=== PATIENT | male | born 1940 | race Caucasian/White ===

== ENCOUNTER 2020-02-20 07:58 | Outpatient (RCR) | payer MEDICARE, BC, SELFPAY ==
--- NOTE | 2020-02-20 08:36 | PTOPEVAL ---
Thank you for referring Cristiano Torres to [facility].? The patient is scheduled to be seen for therapy? __3__x/week for 12 visits. Please review, sign, date and return this plan of care MARIPOSA. I agree with and certify that the following plan of care is medically necessary. Referring Physician Date Admitting Provider: Attending Provider: Omar Chambers MD Referring Provider: *PT Outpatient Evaluation Start: 02/20/20 08:09 Freq: Status: Active Protocol: Document 02/20/20 08:09 VITO (Rec: 02/20/20 08:36 VITO [id number]) Therapy Assessment Status Assessment Status Assessment Status Evaluation Evaluation Information Problem Diagnosis left shoulder pain Onset 09/28/19 Subjective Information Pt. reports that he recalls no Query Text:As Reported By Patient/ specific injury to the left Family shoulder. He states that he was doing a large amount of yard work in September and notice a gradual onset of left shoulder pain. He reports that pain is worst when laying on his right side. He states that reaching overhead is very painful and notes that he is becoming weak. He states that his goal is to improve his shoulder strength and mobility and decrease his pain . Prior Level of Function Activity Level (Last 3 Months) Occupation retired Hand Dominance Left Activity of Daily Living Ability Independent Indoor/Home Mobility Independent Community Mobility Independent Stairs Ability Independent Functional Cognition (Planning, Shopping Independent , Taking Medications) Cooking Yes Cleaning Yes Laundry Yes Shopping Yes Driving Yes Pain Assessment Pain Scale Pain Scale Used Numeric (1 - 10) Self Report Pain Assessment Left Shoulder(s) Reported Pain Level 2 Pain Description Aching Pain Frequency Continuous Lowest Pain Intensity 2 Greatest Pain Intensity 6 Pain Aggravating Factors Exercise/Activity,Lifting, Prolonged Position Pain Score Pain Score 2: Self Report Interventions Used Interventions Used By Clinicians Activity or ADL's,Electrical
== END 2020-03-16 09:45 | disposition home or self-care (01) ==
LOC: CHSPT 07:58
PROVIDERS: PCP Internal Medicine; Visit Provider Internal Medicine
DX: M25.512 Pain in left shoulder (principal)
CPT/HCPCS: 97014; 97110; 97140; 97161; G0283

== ENCOUNTER 2021-10-24 15:17 | Outpatient (CLI) | payer MEDICARE, BC, SELFPAY ==
[2021-10-24 16:24] LABS: SARS-CoV-2 RNA PCR Positive (Negative)
== END 2021-10-24 15:18 | disposition home or self-care (01) ==
LOC: CHSLAB 15:21
PROVIDERS: PCP Internal Medicine; Visit Provider Nurse Practitioner Family
DX: U07.1 COVID-19 (principal); J06.9 Acute upper respiratory infection, unspecified; R05.9 Cough, unspecified
CPT/HCPCS: C9803; U0003; U0005

== ENCOUNTER 2022-08-15 11:58 | Outpatient (CLI) | payer MEDICARE, SELFPAY ==
--- NOTE | ~2022-08-15 | CT_ITS ---
EXAMINATION: CT abdomen pelvis w con DATE: 08/15/2022 13:08 INDICATION: Acute left lower quadrant pain TECHNIQUE: Computed tomography (CT) of the abdomen and pelvis was performed with 100 cc Omnipaque 350 intravenous contrast. The dose-length product was 661.49 mGy-cm. Automated exposure control and iterative reconstruction technique were employed. COMPARISON: None. FINDINGS: Lung bases are unremarkable. Heart size normal. No significant pleural or pericardial effus ion. There are calcified granulomas of the liver. There are small subcentimeter hypodensities of the spleen, likely benign cyst. Gallbladder is present. The pancreas, adrenal glands are unremarkable. Th ere is a 4 mm stone in the upper pole of the right kidney. There are bilateral renal cysts, largest i n the left kidney measuring 5.1 cm. There is acute sigmoid diverticulitis without evidence for perforation or abscess. No significant vas cular abnormality. There is a retroaortic left renal vein. Gallbladder is present. No free air. No ab scess. Advanced multilevel spondylosis with grade 1 spondylolisthesis at L5-S1 secondary to spondylol ysis. IMPRESSION: 1. Acute sigmoid diverticulitis with moderate colonic wall thickening and surrounding phlegmonous keenan nge. 2: Nonobstructing right nephrolithiasis. Reviewed, dictated and finalized at location B. IMPRESSION: 1. Acute sigmoid diverticulitis with moderate colonic wall thickening and surro unding phlegmonous change. 2: Nonobstructing right nephrolithiasis.
[2022-08-15 12:13] LABS: Basophils Absolute Auto 0.03 K/mm3 (0.00-0.10); Basophils Percent Auto 0.3 % (0.0-1.0); Eosinophils Absolute Auto 0.07 K/mm3 (0.02-0.50); Eosinophils Percent Auto 0.8 % (1.0-6.0); Hemoglobin 13.8 g/dL (12.4-15.3); Immature Granulocyte Absolute 0.03 K/mm3 (0.00-0.00); Immature Granulocyte Percent A 0.3 % (0.0-0.0); Lymphocytes Absolute Auto 1.06 K/mm3 (1.10-4.50); Mean Corpuscular HGB Conc 33.7 g/dL (32.0-36.0); Mean Corpuscular Hemoglobin 31.4 pg (27.0-31.0); Mean Corpuscular Volume 93.2 fL (78.0-102.0); Monocytes Absolute Auto 0.81 K/mm3 (0.10-0.90); Monocytes Percent Auto 9.1 % (2.0-11.0); Neutrophils Absolute Auto 6.9 K/mm3 (1.7-7.2); Neutrophils Percent Auto 77.5 % (50.0-70.0); Platelet Count Result 143 K/mm3 (150-420); Red Cell Distribution Width 13.2 % (11.6-14.4); White Blood Count 8.9 K/mm3 (4.8-10.8)
[2022-08-15 12:15] LABS: Appearance Urine Clear (Clear); Bilirubin Urine Negative (Negative); Blood Urine Negative (Negative); Color Urine Yellow (Yellow); Glucose Urine UA Negative (Negative); Ketones Urine Negative (Negative); Leukocyte Esterase Ur Negative (Negative); Nitrate Urine Negative (Negative); Protein Urine Negative (Negative); Urobilinogen Urine 0.2 mg/dL (0.2-1.0); pH Urine 5.5 (5.0-8.0)
[2022-08-15 12:17] LABS: Add Urine Microscopic? NO
[2022-08-15 12:34] LABS: Alanine Aminotransferase 21 U/L (16-63); Albumin Level 3.7 g/dL (3.4-5.0); Alkaline Phosphatase 147 U/L (46-116); Anion Gap 8 mmol/L (8-16); Aspartate Amino Transferase 19 U/L (15-37); Bilirubin,Total 1.6 mg/dL (0.00-1.00); Blood Urea Nitrogen 16 mg/dL (7-18); Calcium 8.9 mg/dL (8.5-10.1); Carbon Dioxide 29 mmol/L (21-32); Chloride 102 mmol/L (98-108); Estimated Glomerular Filt Rate > 60; Glucose 87 mg/dL (70-99); Osmolality Calculated 288 mOsm/kg (285-295); Potassium 4.3 mmol/L (3.5-5.1); Sodium 139 mmol/L (136-145); Total Protein 7.1 g/dL (6.4-8.2)
== END 2022-08-15 11:59 | disposition home or self-care (01) ==
LOC: CHSLAB 12:01
PROVIDERS: PCP Internal Medicine; Visit Provider Internal Medicine
DX: K57.92 Diverticulitis of intestine, part unspecified, without perforation or abscess without bleeding (principal)
CPT/HCPCS: 36415; 74177; 80053; 81003; 85025; Q9967

== ENCOUNTER 2023-02-05 10:48 | Outpatient (CLI) | payer MEDICARE, SELFPAY ==
--- NOTE | ~2023-02-05 | CT_ITS ---
EXAMINATION: CTA chest PE protocol DATE: 02/05/2023 14:57 INDICATION: Shortness of breath TECHNIQUE: Computed tomography angiography (CTA) of the chest was performed with 100 mL Omnipaque-350 intravenous contrast timed to evaluate the pulmonary arteries. Coronal maximum intensity projection 3D-reconstructions were created by the technologist. The dose-length product (DLP) was 493.02 mGy-cm. Automated exposure control and iterative reconstruction technique were employed. COMPARISON: None. FINDINGS: The pulmonary arteries are well-opacified. No pulmonary embolism is identified. There are s mall pleural effusions. Cardiomegaly is noted. There are no pathologically enlarged thoracic lymph no rajiv. Changes of coronary artery bypass grafting are noted. There is mild dependent atelectasis. No pn eumothorax is identified. Punctate calcifications in an otherwise normal liver likely represent heale d granulomatous disease. There are bridging osteophytes at multiple levels in the spine, consistent w ith diffuse idiopathic skeletal hyperostosis (DISH). IMPRESSION: 1. No pulmonary embolism identified. 2. Small pleural effusions with mild dependent atelectasis. Reviewed, dictated and finalized at location L. TER CLERK TRACTOR PARTS
--- NOTE | ~2023-02-05 | US_ITS ---
EXAMINATION: US venous doppler [facility] DATE: 02/05/2023 14:46 INDICATION: Bilateral lower limb swelling TECHNIQUE: Hartley scale images without and with compression and Doppler images of the bilateral lower e xtremity veins were obtained. COMPARISON: None FINDINGS: The right common femoral vein, profunda femoral vein, femoral vein, popliteal vein, peroneal trunk, p osterior tibial veins, and greater saphenous vein are patent. The left common femoral vein, profunda femoral vein, femoral vein, popliteal vein, peroneal trunk, po sterior tibial veins, and greater saphenous vein are patent. IMPRESSION: 1. Patent bilateral lower extremity veins. No evidence of deep venous thrombosis. Reviewed, dictated and finalized at location L. MAKER HELPER IMPRESSION: 1. Patent bilateral lower extremity veins. No evidence of deep venous thrombosi s.
--- NOTE | ~2023-02-05 | XR_ITS ---
Clinical Indication: Dyspnea PA and lateral views of the chest: Comparison: 07/24/2016 Findings: There is minimal blunting of the costophrenic angles. Lungs are otherwise clear. Cardiomed iastinal silhouette is stable, status post CABG. Bones and soft tissues are unremarkable. Impression: Minimal blunting of the costophrenic angles. Correlate for minimal pleural effusions. Status post CABG. Reviewed, dictated and finalized at location M. L HANGING SUPERVISOR Impression: Minimal blunting of the costophrenic angles. Correlate for minimal pleural effu sions. Status post CABG.
[2023-02-05 11:12] LABS: Basophils Absolute Auto 0.04 K/mm3 (0.00-0.10); Basophils Percent Auto 0.8 % (0.0-1.0); Eosinophils Absolute Auto 0.13 K/mm3 (0.02-0.50); Eosinophils Percent Auto 2.7 % (1.0-6.0); Hematocrit 40.9 % (37.0-46.0); Hemoglobin 13.4 g/dL (12.4-15.3); Immature Granulocyte Absolute 0.05 K/mm3 (0.00-0.00); Immature Granulocyte Percent A 1.1 % (0.0-0.0); Lymphocytes Absolute Auto 0.79 K/mm3 (1.10-4.50); Lymphocytes Percent Auto 16.6 % (18.0-42.0); Mean Corpuscular HGB Conc 32.8 g/dL (32.0-36.0); Mean Corpuscular Hemoglobin 30.6 pg (27.0-31.0); Mean Corpuscular Volume 93.4 fL (78.0-102.0); Mean Platelet Volume 9.7 fl (8.7-11.0); Monocytes Absolute Auto 0.53 K/mm3 (0.10-0.90); Monocytes Percent Auto 11.1 % (2.0-11.0); Neutrophils Absolute Auto 3.2 K/mm3 (1.7-7.2); Neutrophils Percent Auto 67.7 % (50.0-70.0); Platelet Count Result 150 K/mm3 (150-420); Red Blood Count 4.38 M/mm3 (4.70-6.10); Red Cell Distribution Width 13.3 % (11.6-14.4); White Blood Count 4.8 K/mm3 (4.8-10.8)
--- NOTE | 2023-02-05 11:12 | ECG_ITS ---
Measurements Intervals [place] Rate: 66 P: RI: 0 QRS: 91 QRSD: 101 T: -6 QT: 394 QTc: 416 Interpretive Statements ATRIAL FIBRILLATION RIGHT AXIS DEVIATION CANNOT RULE OUT SEPTAL INFARCT, AGE INDETERMINATE CONSIDER HIGH LATERAL INFARCT, AGE INDETERMINATE ST-T WAVE ABNORMALITY IN INFERIOR LEADS- CONSIDER ISCHEMIA ABNORMAL ECG NO PREVIOUS ECG AVAILABLE FOR COMPARISON Electronically Signed On 02-05-2023 11:38:54 CUTTER FINISHER by Marcelino Leung D.O.
[2023-02-05 11:31] LABS: D Dimer 3.87 mg/L (0.19-0.50)
[2023-02-05 11:36] LABS: Appearance Urine Clear (Clear); Bilirubin Urine Negative (Negative); Blood Urine Negative (Negative); Color Urine Light Yellow (Yellow); Glucose Urine UA Negative (Negative); Ketones Urine Negative (Negative); Leukocyte Esterase Ur Negative (Negative); Nitrate Urine Negative (Negative); Protein Urine Negative (Negative); Urobilinogen Urine 0.2 mg/dL (0.2-1.0)
[2023-02-05 11:37] LABS: Alanine Aminotransferase 18 U/L (16-63); Albumin Level 3.9 g/dL (3.4-5.0); Alkaline Phosphatase 177 U/L (46-116); Anion Gap 7 mmol/L (8-16); Aspartate Amino Transferase 24 U/L (15-37); Bilirubin,Total 1.3 mg/dL (0.00-1.00); Blood Urea Nitrogen 18 mg/dL (7-18); Calcium 9.6 mg/dL (8.5-10.1); Carbon Dioxide 29 mmol/L (21-32); Chloride 104 mmol/L (98-108); Estimated Glomerular Filt Rate > 60; Free T3 2.57 pg/mL (2.18-3.98); Free T4 Free Thyroxine 1.06 ng/dL (0.76-1.46); Glucose 90 mg/dL (70-99); NT Pro B Type Natriuretic Pept 1438 pg/mL (0-450); Osmolality Calculated 291 mOsm/kg (285-295); Potassium 5.2 mmol/L (3.5-5.1); Sodium 140 mmol/L (136-145); Thyroid Stimulating Hormone 3.67 uIU/mL (0.36-3.74); Total Protein 7.3 g/dL (6.4-8.2)
[2023-02-05 11:39] LABS: Add Urine Microscopic? NO
[2023-02-05 15:16] LABS: Creatine Kinase 72 U/L (39-308); Troponin I 34.9 ng/L (0.00-60.4)
== END 2023-02-05 10:49 | disposition home or self-care (01) ==
PROVIDERS: PCP Internal Medicine; Visit Provider Internal Medicine
DX: I48.91 Unspecified atrial fibrillation (principal); R06.00 Dyspnea, unspecified; R60.9 Edema, unspecified; R79.1 Abnormal coagulation profile; I50.9 Heart failure, unspecified; J90 Pleural effusion, not elsewhere classified; J98.11 Atelectasis; Z95.1 Presence of aortocoronary bypass graft; R94.31 Abnormal electrocardiogram [ECG] [EKG]
CPT/HCPCS: 36415; 71046; 71275; 80053; 81003; 82550; 82553; 83880; 84439; 84443; 84481; 84484; 85025; 85380; 93005; 93970; Q9967

== ENCOUNTER 2023-02-09 08:02 | Outpatient (CLI) | payer MEDICARE, SELFPAY ==
[2023-02-09 09:17] LABS: Anion Gap 6 mmol/L (8-16); Blood Urea Nitrogen 25 mg/dL (7-18); Calcium 9.4 mg/dL (8.5-10.1); Carbon Dioxide 35 mmol/L (21-32); Chloride 103 mmol/L (98-108); Estimated Glomerular Filt Rate 57; Glucose 93 mg/dL (70-99); Osmolality Calculated 302 mOsm/kg (285-295); Potassium 4.3 mmol/L (3.5-5.1); Sodium 144 mmol/L (136-145)
[2023-02-09 09:40] LABS: NT Pro B Type Natriuretic Pept 824 pg/mL (0-450)
== END 2023-02-09 08:03 | disposition home or self-care (01) ==
LOC: CHSLAB 08:04
PROVIDERS: PCP Internal Medicine; Visit Provider Internal Medicine
DX: I50.9 Heart failure, unspecified (principal)
CPT/HCPCS: 36415; 80048; 83880

== ENCOUNTER 2023-02-24 15:25 | Outpatient (CLI) | payer MEDICARE, SELFPAY ==
[2023-02-24 15:52] LABS: Anion Gap 3 mmol/L (8-16); Blood Urea Nitrogen 34 mg/dL (7-18); Calcium 9.4 mg/dL (8.5-10.1); Carbon Dioxide 36 mmol/L (21-32); Chloride 102 mmol/L (98-108); Estimated Glomerular Filt Rate 55; Glucose 92 mg/dL (70-99); Osmolality Calculated 299 mOsm/kg (285-295); Potassium 4.2 mmol/L (3.5-5.1); Sodium 141 mmol/L (136-145)
== END 2023-02-24 15:26 | disposition home or self-care (01) ==
LOC: CHSLAB 15:27
PROVIDERS: Internal Medicine Cardiovascular Disease; PCP Internal Medicine; Visit Provider Nurse Practitioner Adult Health
DX: I50.42 Chronic combined systolic (congestive) and diastolic (congestive) heart failure (principal)
CPT/HCPCS: 36415; 80048

== ENCOUNTER 2023-03-09 12:55 | Outpatient (CLI) | payer MEDICARE, SELFPAY ==
--- NOTE | 2023-03-09 13:03 | ECHO_ITS ---
Patient Info Name: Cristiano Torres Age: 82 years : 1940 Gender: Male Ht: 71 in Wt: 180 lbs BSA: 2.03 m2 HR: 65 bpm BP: 142 / 85 mmHg Technical Quality: Good Exam Date: 03/09/2023 2:07 PM Exam Location: Echo Lab Patient Status: Outpatient Admit Date: 03/09/2023 Staff Ordering Physician: Omar Chambers MD Assembler Tubing: Franck Cardona RDCS Attending Provider: Omar Chambers MD Referring Physician: Reyes ELLIS; Exam Type: CA echo doppler color flow Study Info Indications - CHF Complete two-dimensional, color flow and Doppler transthoracic echocardiogram is performed. Summary 1. Complete two-dimensional, color flow and Doppler transthoracic echocardiogram is performed. 2. Left ventricular chamber dimension is normal. 3. Left ventricular systolic function is normal, estimated at 55-60%. 4. There is mild concentric increased left ventricular wall thickness. 5. The left ventricular diastolic function is abnormal. 6. E/e' 18 is elevated. 7. Left atrial chamber dimension is mildly enlarged. 8. There is mild aortic valve sclerosis. 9. There is trace aortic valve regurgitation. 10. There is mild to moderate mitral valve regurgitation. 11. There is mild tricuspid valve regurgitation. 12. No pulmonary hypertension, estimated pulmonary arterial systolic pressure is 27 mmHg. 13. There is mild pulmonic regurgitation. Left Ventricle E/e' 18 is elevated. Left ventricular chamber dimension is normal. Left ventricular systolic function is normal, estimated at 55-60%. There is mild concentric increased left ventricular wall thickness. The left ventricular diastolic function is abnormal. Right Ventricle Right ventricular systolic function is normal and with normal TAPSE 2.6 cm. Right ventricular chamber dimension is normal. Left Atria Left atrial chamber dimension is mildly enlarged. Right Atria Right atrial chamber dimension is normal. Aortic Valve The aortic valve is trileaflet. There is mild aortic valve sclerosis. There is no aortic valve stenosis. There is trace aortic valve regurgitation. Pulmonic Valve There is mild pulmonic regurgitation. Mitral Valve There is no mitral valve stenosis. There is mild to moderate mitral valve regurgitation. Tricuspid Valve There is mild tricuspid valve regurgitation. No pulmonary hypertension, estimated pulmonary arterial systolic pressure is 27 mmHg. Pericardium/Pleural There is no pericardial effusion. Inferior Vena Cava Normal inferior vena cava with >50% collapse upon inspiration consistent with normal right atrial pressure, 5 mmHg. Aorta The aortic root size at the sinus of Valsalva is normal. Left Ventricular Outflow Tract Name Value Normal LVOT 2D LVOT Diameter 2.0 cm LVOT Doppler LVOT Peak Velocity 67 cm/s LVOT Peak Gradient 2 mmHg LVOT Mean Gradient 1 mmHg LVOT VTI 17 cm LVOT VTI/AV VTI Ratio 0.8 LVOT Stroke Volume 55 ml Pulmonic Valve Name Value
== END 2023-03-09 12:56 | disposition home or self-care (01) ==
PROVIDERS: Absent Provider Internal Medicine Cardiovascular Disease; PCP Internal Medicine; Visit Provider Internal Medicine
DX: I50.9 Heart failure, unspecified (principal); I08.3 Combined rheumatic disorders of mitral, aortic and tricuspid valves
CPT/HCPCS: 93306

== ENCOUNTER 2023-10-09 11:18 | Outpatient (CLI) | payer MEDICARE, SELFPAY ==
[2023-10-09 11:36] LABS: Hematocrit 40.5 % (37.0-46.0); Hemoglobin 13.9 g/dL (12.4-15.3); Mean Corpuscular HGB Conc 34.3 g/dL (32-36); Mean Corpuscular Hemoglobin 32.2 pg (27.0-31.0); Mean Corpuscular Volume 93.8 fL (78.0-102.0); Mean Platelet Volume 9.5 fl (8.7-11.0); Platelet Count Result 171 K/mm3 (150-420); Red Blood Count 4.32 M/mm3 (4.70-6.10); Red Cell Distribution Width 12.4 % (11.6-14.4); White Blood Count 7.4 K/mm3 (4.8-10.8)
[2023-10-09 11:37] LABS: Appearance Urine Clear (Clear); Bilirubin Urine Negative (Negative); Blood Urine Negative (Negative); Color Urine Light Yellow (Yellow); Glucose Urine UA Negative (Negative); Ketones Urine Negative (Negative); Leukocyte Esterase Ur Negative (Negative); Nitrate Urine Negative (Negative); Protein Urine Negative (Negative); Specific Grav Ur <= 1.005 (1.010-1.020)
[2023-10-09 13:18] LABS: Alanine Aminotransferase 21 U/L (16-63); Albumin Level 4.1 g/dL (3.4-5.0); Alkaline Phosphatase 125 U/L (46-116); Anion Gap 8 mmol/L (4-12); Aspartate Amino Transferase 22 U/L (15-37); Bilirubin,Total 0.8 mg/dL (0.00-1.00); Blood Urea Nitrogen 25 mg/dL (7-18); Calcium 9.5 mg/dL (8.5-10.1); Carbon Dioxide 31 mmol/L (21-32); Chloride 101 mmol/L (98-108); Cholesterol 132 mg/dL (0-200); Estimated Glomerular Filt Rate > 60; Ferritin 90 ng/mL (26-388); Free T3 2.07 pg/mL (2.18-3.98); Free T4 Free Thyroxine 0.87 ng/dL (0.76-1.46); Glucose 88 mg/dL (70-99); HDL Direct 52 mg/dL (40-60); Iron 97 ug/dL (65-175); LDL Cholesterol Calculated 60 mg/dL (<130); NT Pro B Type Natriuretic Pept 1100 pg/mL (0-450); Osmolality Calculated 293 mOsm/kg (285-295); Potassium 4.9 mmol/L (3.5-5.1); Sodium 140 mmol/L (136-145); Thyroid Stimulating Hormone 2.38 uIU/mL (0.36-3.74); Total Protein 7.2 g/dL (6.4-8.2); Triglycerides 98 mg/dL (0-150); Vitamin B12 > 2000 pg/mL (193-986)
[2023-10-09 15:41] LABS: Add Urine Microscopic? NO
== END 2023-10-09 11:19 | disposition home or self-care (01) ==
LOC: CHSLAB 11:21
PROVIDERS: PCP Internal Medicine; Visit Provider Internal Medicine
DX: I10 Essential (primary) hypertension (principal); G62.9 Polyneuropathy, unspecified; D64.9 Anemia, unspecified; I50.9 Heart failure, unspecified
CPT/HCPCS: 36415; 80053; 80061; 81003; 82607; 82728; 83540; 83880; 84439; 84443; 84481; 85027

== ENCOUNTER 2023-11-05 16:03 | Outpatient (CLI) | payer MEDICARE, SELFPAY ==
--- NOTE | 2023-11-05 16:09 | ECHO_ITS ---
Patient Info Name: Cristiano Torres Age: 83 years : 1940 Gender: Male Ht: 72 in Wt: 184 lbs BSA: 2.07 m2 HR: 69 bpm BP: 132 / 80 mmHg Technical Quality: Fair Exam Date: 11/05/2023 3:59 PM Exam Location: [facility] Patient Status: Outpatient Admit Date: 11/05/2023 Staff Ordering Physician: Omar Chambers MD Sales Closer: Evan Felton RDCS Attending Provider: Omar Chambers MD Referring Physician: Reyes ELLIS; Exam Type: CA echo doppler color flow Study Info Indications - CHF Complete two-dimensional, color flow and Doppler transthoracic echocardiogram is performed. Summary 1. Complete two-dimensional, color flow and Doppler transthoracic echocardiogram is performed. 2. Left ventricular chamber dimension is normal. 3. There is mild concentric increased left ventricular wall thickness. 4. Left ventricular systolic function is moderately globally reduced, estimated at 40-45%. 5. The left ventricular diastolic function is abnormal. 6. E/e' 12 is mildly elevated. 7. Left atrial chamber dimension is mildly enlarged. 8. Right atrial chamber dimension is mildly enlarged. 9. There is mild aortic valve sclerosis. 10. There is mild aortic valve regurgitation. 11. There is moderate mitral valve regurgitation. 12. There is moderate tricuspid valve regurgitation. 13. Mild pulmonary hypertension, estimated pulmonary arterial systolic pressure is 45 mmHg. 14. There is moderate to severe pulmonic regurgitation. 15. The prox ascending aorta size is borderline dilated at 4.0 cm. Left Ventricle E/e' 12 is mildly elevated. Left ventricular systolic function is moderately globally reduced, estimated at 40-45%. Left ventricular chamber dimension is normal. There is mild concentric increased left ventricular wall thickness. The left ventricular diastolic function is abnormal. Right Ventricle Right ventricular chamber dimension is normal. Right ventricular systolic function is normal. Left Atria Left atrial chamber dimension is mildly enlarged. Right Atria Right atrial chamber dimension is mildly enlarged. Aortic Valve The aortic valve is trileaflet. There is mild aortic valve sclerosis. There is no aortic valve stenosis. There is mild aortic valve regurgitation. Pulmonic Valve There is moderate to severe pulmonic regurgitation. Mitral Valve There is no mitral valve stenosis. There is moderate mitral valve regurgitation. Tricuspid Valve There is moderate tricuspid valve regurgitation. Mild pulmonary hypertension, estimated pulmonary arterial systolic pressure is 45 mmHg. Pericardium/Pleural There is no pericardial effusion. Inferior Vena Cava Normal inferior vena cava with >50% collapse upon inspiration consistent with normal right atrial pressure, 5 mmHg. Aorta The prox ascending aorta size is borderline dilated at 4.0 cm. The aortic root size at the sinus of Valsalva is normal. Left Ventricular Outflow Tract Name Value Normal LVOT 2D LVOT Diameter 2.3 cm LVOT Doppler LVOT Peak Velocity 60 cm/s LVOT Peak Gradient 1 mmHg LVOT Mean Gradient 1 mmHg LVOT VTI 13 cm
== END 2023-11-05 16:04 | disposition home or self-care (01) ==
PROVIDERS: PCP Internal Medicine; Visit Provider Internal Medicine
DX: I50.9 Heart failure, unspecified (principal); I08.3 Combined rheumatic disorders of mitral, aortic and tricuspid valves; I37.1 Nonrheumatic pulmonary valve insufficiency; I27.20 Pulmonary hypertension, unspecified; R93.1 Abnormal findings on diagnostic imaging of heart and coronary circulation
CPT/HCPCS: 93306

== ENCOUNTER 2024-06-30 10:32 | Outpatient (CLI) | payer MEDICARE, SELFPAY ==
--- NOTE | ~2024-06-30 | XR_ITS ---
EXAMINATION: XR chest 2V DATE: 06/30/2024 11:11 INDICATION: Shortness of breath TECHNIQUE: frontal and lateral views of the chest were obtained. COMPARISON: Chest radiograph and CT dated 02/15/2023 FINDINGS: The lungs are clear with no focal airspace opacities, pulmonary edema, pleural effusion or pneumothor ax. The cardiomediastinal silhouette is normal. Median sternotomy wires and mediastinal surgical clip s are seen, likely from prior coronary artery bypass grafting. Mild thoracic spondylosis with chronic mild anterior wedging of a midthoracic vertebral body. IMPRESSION: 1. No acute cardiopulmonary disease. Reviewed, dictated and finalized at location A.
--- NOTE | ~2024-06-30 | CT_ITS ---
EXAMINATION: CT brain wo con DATE: 06/30/2024 11:12 INDICATION: 3 days of severe frontal headache TECHNIQUE: Computed tomography (CT) of the head was performed without intravenous contrast. Sagittal and coronal reconstructions were performed. The mA was adjusted according to patient size. Iterative reconstruction technique was employed. The dose-length product was 605.33 mGy-cm. COMPARISON: None FINDINGS: No acute intracranial hemorrhage, acute infarction or abnormal extra axial fluid collection. Old lacu salome infarcts at the bilateral basal ganglia. There is mild scattered white matter hypoattenuation con sistent with chronic small vessel ischemic disease. Symmetric prominence of the sulci consistent with mild age-appropriate diffuse cerebral volume loss. Ventricles are normal and symmetric. No mass/mass effect. The orbits, paranasal sinuses and mastoid air cells are normal. IMPRESSION: 1. 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 No acute intracranial process. 2. Age-related changes including mild diffuse volume loss and mild scattered white matter hypoattenua tion consistent with chronic small vessel ischemic disease. Reviewed, dictated and finalized at location A. IMPRESSION: 1. 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 No acute intracranial p rocess. 2. Age-related changes including mild diffuse volume loss and mild scattered wh ite matter hypoattenuation consistent with chronic small vessel ischemic diseas e.
[2024-06-30 10:54] LABS: Basophils Absolute Auto 0.04 K/mm3 (0.00-0.10); Basophils Percent Auto 0.8 % (0.0-1.0); Eosinophils Absolute Auto 0.15 K/mm3 (0.02-0.50); Eosinophils Percent Auto 2.9 % (1.0-6.0); Hemoglobin 13.3 g/dL (12.4-15.3); Immature Granulocyte Absolute 0.02 K/mm3 (0.00-0.00); Immature Granulocyte Percent A 0.4 % (0.0-0.0); Lymphocytes Absolute Auto 1.06 K/mm3 (1.10-4.50); Lymphocytes Percent Auto 20.2 % (18.0-42.0); Mean Corpuscular HGB Conc 32.4 g/dL (32-36); Mean Corpuscular Hemoglobin 30.5 pg (27.0-31.0); Mean Platelet Volume 9.8 fl (8.7-11.0); Monocytes Absolute Auto 0.57 K/mm3 (0.10-0.90); Monocytes Percent Auto 10.9 % (2.0-11.0); Neutrophils Percent Auto 64.8 % (50.0-70.0); Platelet Count Result 169 K/mm3 (150-420); Red Blood Count 4.36 M/mm3 (4.70-6.10); Red Cell Distribution Width 12.3 % (11.6-14.4); White Blood Count 5.2 K/mm3 (4.8-10.8)
--- OUTSIDE RECORDS SUMMARY | 2024-06-30 11:25 | XMS_ITS | Referral Summary ---
Author Organization [facility] Address [address] [place] [id number] Care Team Providers Care Correctional Nurse Name Role Phone Omar Chambers MD Primary Care Provider + [phone] Allergies No known active allergies Medications aspirin 325 mg EC tablet take 1 tablet by oral route every day 0 0 7 Active furosemide (LASIX) 20 mg tablet Take 2 tablets (40 mg total) by mouth daily Active metoprolol XL (TOPROL-XL) 25 mg extended release tablet Take 1 tablet (25 mg total) by mouth daily 30 tablet 11 3 Active Additional Information Patient taking differently: 50 mgoral Daily, Reported on 02/12/2023 atorvastatin (LIPITOR) 10 mg tablet 3 Active Eliquis 5 mg tablet 3 Active potassium chloride ER 10 mEq CR tablet 3 Active losartan (COZAAR) 25 mg tabletIndicatio ns:Chronic combined systolic and diastolic CHF (congestive heart failure) (HCC) TAKE ONE TABLET BY MOUTH DAILY 90 tablet 3 5 Active Active Problems Problem Noted Date Diagnosed Date Mixed hyperlipidemia 08/14/2022 Diastolic murmur 04/10/2022 H/O cardiomyopathy 06/26/2020 Chronic diastolic congestive heart failure (CMS/ HCC) 12/16/2018 Accelerated junctional rhythm 11/17/2018 Noncompliance with medication regimen 11/23/2017 Chronic obstructive pulmonary disease 08/20/2016 Overview (08/22/2016): Chronic obstructive pulmonary disease, unspecified COPD type Pulmonary hypertension (CMS/HCC) 08/20/2016 Overview (08/22/2016): Pulmonary HTN Dyspnea on exertion 07/29/2016 Overview (08/22/2016): EBYER (dyspnea on exertion) Drug intoxication 07/29/2016 Overview (08/22/2016): At risk for amiodarone toxicity with intermediate use Cardiomyopathy, ischemic 07/29/2016 Overview (08/22/2016): Ischemic cardiomyopathy S/P CABG x 4 05/26/2016 Overview (07/04/2016): S/P CABG x 4 Coronary artery disease invo lving knik coronary artery of knik heart without angina pectoris 05/26/2016 Overview (07/04/2016): Coronary artery disease involving knik coronary artery of knik heart without angina pectoris History of maze procedure 05/26/2016 Overview (07/04/2016): S/P Maze operation for atrial fibrillation History of myocardial infarction 05/26/2016 Overview (07/04/2016): H/O acute myocardial infarction Pleural cavity effusion 04/30/2016 Longstanding persistent atrial fibrillation 07/28 Overview (07/04/2016): Paroxysmal atrial fibrillation Fatigue 08/08/2015 Overview (07/04/2016): Fatigue, unspecified type Adverse effect of drug 08/08/2015 Overview (07/04/2016): Medication side effects, subsequent encounter FRANK (obstructive sleep apnea) 05/28/2015 Overview (07/04/2016): FRANK (obstructive sleep apnea) Chronic anticoagulation 05/28/2015 Overview (07/04/2016): Chronic anticoagulation Benign hypertension 05/28/2015 Overview (07/04/2016): HTN (hypertension), benign Atrial fibrillation with rapid ventricular respo nse 05/28/2015 Overview (07/04/2016): Atrial fibrillation with RVR Resolved Problems Problem Noted Date Diagnosed Date Resolved Date Atrial fibrillation 09/19/2015 06/01/19 24 Overview (07/04/2016): Atrial fibrillation, currently in sinus rhythm Social History Tobacco Use Types Packs/Day Years Used Date Smoking Tobacco: Light Smoker Cigars Smokeless Tobacco: Never Comments:Smoking History Pac ks/day: 1 Cigarillos Alcohol Use Standard Drinks/Week Comments Yes 0 (1 standard drink = 0.6 oz pur e alcohol) Personal Safety Answer Date Recorded Getting School Help Needed Not on file 05/27 Sex and Gender Information Value Date Recorded Sex Assigned at Not on file Legal Sex Male 11:58 AM MEDICAL RECORDS MANAGER Gender Identity Not on file Sexual Orientation Not on file Last Filed Vital Signs Vital Sign Reading Time Taken Comments Blood Pressure 118/70 12/09/2023 8:32 AM CDT Pulse 83 06/01/2023 1:03 PM MEDICAL RECORDS MANAGER Temperature 36.3 C (97.3 F) 03/15/2020 9:18 AM MEDICAL RECORDS MANAGER Respiratory Rate 16 05/20/2017 8:16 AM MEDICAL RECORDS MANAGER Oxygen Saturation 99% 12/09/2023 8:32 AM CDT Inhaled Oxygen Concentration - - Weight 85.1 kg (187 lb 9.6 oz) 12/09/2023 8:32 A M CDT Height 185.4 cm (6' 1 ) 12/09/2023 8:32 AM CDT Body Mass Index 24.75 12/09/2023 8:32 AM CDT Plan of Treatment Not on file Insurance MEDICARE [facility] MEDICARE [facility] MEDICARE Advance Directives For more information, please contact: [phone] Documents on File Type Date Recorded Patient Ceramic Plater Expl anation ADVANCE DIRECTIVE 11/14/2016 8:27 AM Care Teams Correctional Nurse Relationship Specialty Start Date End Date Oamr Chambers MD [address] [place] [address] PCP - General 06/27/16
--- OUTSIDE RECORDS SUMMARY | 2024-06-30 11:25 | XMS_ITS | Encounter Summary ---
Author Organization [facility] Address [address] [facility] [address] [place] [id number] Care Team Providers Care Movement Education Specialist Name Role Phone Omar Chambers MD Primary Care Provider + [phone] Omar Chambers MD Primary Care Provider + [phone] Omar Chambers MD Primary Care Provider + [phone] Encounter Details Date Type Department Care Team (Late st Contact Info) Description 04/30/2016 Orders Only [facility] ProviderDemar MD [address] [place], [place] [id number] Social History Tobacco Use Types Packs/Day Years Used Date Smoking Tobacco: Light Smoker Comments:Smoking History Pac ks/day: 1 Cigarillos Alcohol Use Standard Drinks/Week Comments Yes 0 (1 standard drink = 0.6 oz pur e alcohol) Sex and Gender Information Value Date Recorded Sex Assigned at Not on file Legal Sex Male 11:58 AM DRUM FILLER Gender Identity Not on file Sexual Orientation Not on file documented as of this encounter Plan of Treatment Not on file documented as of this encounter Procedures Procedure Name Priority Date/Time Associated Diagnosis Comments CARDIOLOGY REPORT 04/30/2016 documented in this encounter Results * CARDIOLOGY REPORT (04/30/2016) Anatomical Region Laterality Modality Other Narrative 04/30/2016 Ordered by an unspecified provider. Historical Provider [facility] JUSTYNA BRINK Final Result documented in this encounter Visit Diagnoses Not on filedocumented in this encounter Care Teams Movement Education Specialist Relationship Specialty Start Date End Date Omar Chambers MD [address] [place] [address] PCP - General 06/27/16 Omar Chambers MD [address] [place] [address] PCP - General 05/29/16 06/26/16 Omar Chambers MD [address] [place] [address] PCP - General 08/08/15 05/28/16 documented as of this encounter
--- OUTSIDE RECORDS SUMMARY | 2024-06-30 11:25 | XMS_ITS | Encounter Summary ---
Author Organization [facility] Address [address] [facility] [address] [place] [address] Care Team Providers Care Commercial Drafter Name Role Phone Omar Chambers MD Primary Care Provider + [phone] Omar Chambers MD Primary Care Provider + [phone] Omar Chambers MD Primary Care Provider + [phone] Omar Chambers MD Primary Care Provider + [phone] Encounter Details Date Type Department Care Team (Late st Contact Info) Description 09/09/2013 Orders Only [facility] [address] [place] [address] Scanning, Provider Social History Tobacco Use Types Packs/Day Years Used Date Smoking Tobacco: Never Assessed Sex and Gender Information Value Date Recorded Sex Assigned at Not on file Legal Sex Male 11:58 AM INTERNATIONAL AFFAIRS VICE PRESIDENT Gender Identity Not on file Sexual Orientation Not on file documented as of this encounter Plan of Treatment Not on file documented as of this encounter Procedures Procedure Name Priority Date/Time Associated Diagnosis Comments GI - RESULT 09/09/2013 SCAN - PATHOLOGY 09/09/2013 documented in this encounter Results * SCAN - PATHOLOGY (09/09/2013) us Provider Scanning Final Result * GI - RESULT (09/09/2013) Anatomical Region Laterality Modality Other us Provider Scanning Final Result documented in this encounter Visit Diagnoses Not on filedocumented in this encounter Care Teams Commercial Drafter Relationship Specialty Start Date End Date Omar Chambers MD [address] [place] [address] PCP - General 06/27/16 Omar Chambers MD [address] [place] [address] PCP - General 05/29/16 06/26/16 Omar Chambers MD [address] [place] [address] PCP - General 08/08/15 05/28/16 Omar Chambers MD [address] [place] [address] PCP - General 05/28/15 08/07/15 documented as of this encounter
--- OUTSIDE RECORDS SUMMARY | 2024-06-30 11:25 | XMS_ITS | Encounter Summary ---
Author Organization [facility] Address [address] [facility] [address] [place] [address] Care Team Providers Care Diagnostics Sales Developer Name Role Phone Omar Chambers MD Primary Care Provider + [phone] Omar Chambers MD Primary Care Provider + [phone] Omar Chambers MD Primary Care Provider + [phone] Encounter Details Date Type Department Care Team (Late st Contact Info) Description 05/09/2016 Orders Only [facility] ProviderDemar MD [address] [place], [place] [id number] Social History Tobacco Use Types Packs/Day Years Used Date Smoking Tobacco: Light Smoker Comments:Smoking History Pac ks/day: 1 Cigarillos Alcohol Use Standard Drinks/Week Comments Yes 0 (1 standard drink = 0.6 oz pur e alcohol) Sex and Gender Information Value Date Recorded Sex Assigned at Not on file Legal Sex Male 11:58 AM INTERNATIONAL OPERATIONS MANAGER Gender Identity Not on file Sexual Orientation Not on file documented as of this encounter Plan of Treatment Not on file documented as of this encounter Procedures Procedure Name Priority Date/Time Associated Diagnosis Comments CARDIOLOGY REPORT 05/09/2016 documented in this encounter Results * CARDIOLOGY REPORT (05/09/2016) Anatomical Region Laterality Modality Other Narrative 05/09/2016 Ordered by an unspecified provider. Historical Provider [facility] JUSTYNA BRINK Final Result documented in this encounter Visit Diagnoses Not on filedocumented in this encounter Care Teams Diagnostics Sales Developer Relationship Specialty Start Date End Date Omar Chambers MD [address] [place] [address] PCP - General 06/27/16 Omar Chambers MD [address] [place] [address] PCP - General 05/29/16 06/26/16 Omar Chambers MD [address] [place] [address] PCP - General 08/08/15 05/28/16 documented as of this encounter
--- OUTSIDE RECORDS SUMMARY | 2024-06-30 11:25 | XMS_ITS | Encounter Summary ---
Author Organization [facility] Address [address] [facility] [address] [place] [address] Care Team Providers Care Tobacco Grower Name Role Phone Omar Chambers MD Primary Care Provider + [phone] Omar Chambers MD Primary Care Provider + [phone] Omar Chambers MD Primary Care Provider + [phone] Encounter Details Date Type Department Care Team (Late st Contact Info) Description 04/02/2016 Orders Only [facility] ProviderDemar MD [address] [place], [place] [id number] Social History Tobacco Use Types Packs/Day Years Used Date Smoking Tobacco: Light Smoker Comments:Smoking History Pac ks/day: 1 Cigarillos Alcohol Use Standard Drinks/Week Comments Yes 0 (1 standard drink = 0.6 oz pur e alcohol) Sex and Gender Information Value Date Recorded Sex Assigned at Not on file 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 Historical Provider [facility] JUSTYNA BRINK Final Result documented in this encounter Visit Diagnoses Not on filedocumented in this encounter Care Teams Tobacco Grower Relationship Specialty Start Date End Date Omar Chambers MD [address] [place] [address] PCP - General 06/27/16 Omar Chambers MD [address] [place] [address] PCP - General 05/29/16 06/26/16 Omar Chambers MD [address] [place] [address] PCP - General 08/08/15 05/28/16 documented as of this encounter
--- OUTSIDE RECORDS SUMMARY | 2024-06-30 11:25 | XMS_ITS | Clinical Summary ---
Author Organization [facility] Address [address] [place] [address] Care Team Providers Care Strategic Sourcing Manager Name Role Phone Omar Chambers MD Primary Care Provider + [phone] Allergies No known active allergies Medications aspirin [...] HTN Dyspnea on exertion 07/29/2016 Overview (08/22/2016): BEYER (dyspnea on exertion) Drug intoxication 07/29/2016 Overview (08/22/2016): At risk for amiodarone toxicity with long-term use Cardiomyopathy, ischemic 07/29/2016 Overview (08/22/2016): Ischemic cardiomyopathy S/P CABG x 4 05/26/2016 Overview (07/04/2016): S/P CABG x 4 Coronary artery disease invo lving [place] coronary artery of [place] heart without angina pectoris 05/26/2016 Overview (07/04/2016): Coronary artery disease involving [place] coronary artery of [place] heart without angina pectoris History of maze [...] (07/04/2016): Atrial fibrillation, currently in sinus rhythm Surgical History Surgery Date Site/Laterality Comments US GUIDED THORACENTESIS 05/03/2016 N/A US GUIDED THORACENTESIS 04/16/2016 N/A CORONARY ARTERY BYPASS GRAFT Medical History Medical History Date Comments BEYER (dyspnea on exertion) COPD (chronic obstructive pulmonary disease) (HC C) Hypertension Coronary artery disease Atrial fibrillation (HCC) Sleep apnea Myocardial infarction (HCC) Covid 10/2021 Social History Tobacco Use Types Packs/Day Years [...] on file Legal Sex Male 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 Gender Identity Not on file Sexual Orientation Not on file Obstetrics History Last Filed Vital Signs Vital Sign Reading Time Taken Comments Blood Pressure 118/70 12/09/2023 8:32 AM CDT Pulse 83 06/01/2023 1:03 PM SOCCER PLAYER Temperature 36.3 C (97.3 F) 03/15/2020 9:18 AM SOCCER PLAYER Respiratory Rate 16 05/20/2017 8:16 AM SOCCER PLAYER Oxygen Saturation 99% 12/09/2023 8:32 AM CDT Inhaled Oxygen Concentration - - Weight 85.1 kg (187 lb 9.6 oz) 12/09/2023 8:32 A M CDT Height 185.4 cm (6' 1 ) 12/09/2023 8:32 AM CDT Body Mass Index 24.75 12/09/2023 8:32 AM CDT Plan of Treatment Health Maintenance Due Date Last Done Comments Depression Screening 1940 Fall Risk Assessment 1940 DTaP/Tdap/Td Vaccine (1 - Tdap) 07/12/1951 Hepatitis B Screening 1958 Pneumococcal vaccine 65+ (1 of 2 - PCV) 07/12/1959 Zoster Vaccine (1 of 2) 1990 Well Visit 65+ 2005 Influenza Vaccine (#1) 2023 Insurance MEDICARE [facility] MEDICARE [facility] Advance Directives For more information, please contact: [phone] Documents on File Type Date Recorded Patient Registered Clinical Dietitian Expl anation ADVANCE DIRECTIVE 11/14/2016 8:27 AM Care Teams Strategic Sourcing Manager Relationship Specialty Start Date End Date Omar Chambers MD [address] [place] [address] PCP - General 06/27/16
--- OUTSIDE RECORDS SUMMARY | 2024-06-30 11:25 | XMS_ITS | Encounter Summary ---
Author Organization [facility] Address [address] [facility] [address] [place] [address] Care Team Providers Care Senior Research Analyst Name Role Phone Omar Chambers MD Primary Care Provider + [phone] Omar Chambers MD Primary Care Provider + [phone] Omar Chambers MD Primary Care Provider + [phone] Encounter Details Date Type Department Care Team (Late st Contact Info) Description 04/10/2016 Orders Only [facility] ProviderDemar MD [address] [place], [place] [id number] Social History Tobacco Use Types Packs/Day Years Used Date Smoking Tobacco: Light Smoker Comments:Smoking History Pac ks/day: 1 Cigarillos Alcohol Use Standard Drinks/Week Comments Yes 0 (1 standard drink = 0.6 oz pur e alcohol) Sex and Gender Information Value Date Recorded Sex Assigned at Not on file 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 Historical Provider [facility] JUSTYNA BRINK Final Result documented in this encounter Visit Diagnoses Not on filedocumented in this encounter Care Teams Senior Research Analyst Relationship Specialty Start Date End Date Omar Chambers MD [address] [place] [address] PCP - General 06/27/16 Omar Chambers MD [address] [place] [address] PCP - General 05/29/16 06/26/16 Omar Chambers MD [address] [place] [address] PCP - General 08/08/15 05/28/16 documented as of this encounter
--- OUTSIDE RECORDS SUMMARY | 2024-06-30 11:25 | XMS_ITS | Encounter Summary ---
Author Organization [facility] Address [address] [facility] [address] [place] [address] Care Team Providers Care Online User Experience Strategist Name Role Phone Omar Chambers MD Primary Care Provider [phone] Encounter Details Date Type Department Care Team (Late st Contact Info) Description 08/13/2016 Orders Only [facility] ProviderDemar MD [address] [place] [address] Social History Tobacco Use Types Packs/Day Years Used Date Smoking Tobacco: Light Smoker Comments:Smoking History Pac ks/day: 1 Cigarillos Alcohol Use Standard Drinks/Week Comments Yes 0 (1 standard drink = 0.6 oz pur e alcohol) Sex and Gender Information Value Date Recorded Sex Assigned at Not on file 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 Historical Provider [facility] JUSTYNA BRINK Final Result documented in this encounter Visit Diagnoses Not on filedocumented in this encounter Care Teams Online User Experience Strategist Relationship Specialty Start Date End Date Omar Chambers MD [address] [place] [address] PCP - General 06/27/16 documented as of this encounter
--- OUTSIDE RECORDS SUMMARY | 2024-06-30 11:25 | XMS_ITS | Clinical Summary ---
Author Organization [facility] Address [facility] [place] [address] Care Team Providers Care Lace Winder Name Role Phone Unavailable Primary Care Provider Unavailabl e Social History Tobacco Use Types Packs/Day Years Used Date Smoking Tobacco: Never Assessed Sex and Gender Information Value Date Recorded Sex Assigned at Not on file Legal Sex Male 10:36 PM CDT Gender Identity Not on file Sexual Orientation Not on file Plan of Treatment Health Maintenance Due Date Last Done Comments DTaP, Tdap and Td Vaccines ( 1 - Tdap) 07/12/1959 Zoster Vaccines (1 of 2) 1990 Pneumococcal Vaccine: 65+ Ye ars (1 of 1 - PCV) 2005 RSV Immunization or 60+ Years (1 - 1-dose 75+ series) 07/12/2015 COVID-19 Vaccine (2023-2 5 season) 2023 Influenza Adult (#1) 2023 Meningococcal B Vaccine Aged Out No l onger eligible based on patient's age to complete this topic Meningococcal Vaccine Aged Out No weston sharron eligible based on patient's age to complete this topic RSV Immunizations Under 20 Months Aged Out No longer eligible based on patient's age to complete this topic
[2024-06-30 11:28] LABS: Anion Gap 8 mmol/L (4-12); Blood Urea Nitrogen 27 mg/dL (7-18); Calcium 9.2 mg/dL (8.5-10.1); Carbon Dioxide 32 mmol/L (21-32); Chloride 104 mmol/L (98-108); Estimated Glomerular Filt Rate 49; Glucose 68 mg/dL (70-99); NT Pro B Type Natriuretic Pept 1673 pg/mL (0-450); Osmolality Calculated 301 mOsm/kg (285-295); Potassium 4.4 mmol/L (3.5-5.1); Sodium 144 mmol/L (136-145)
[2024-06-30 11:32] LABS: Influenza A QL RT-PCR Negative (Negative); Influenza B QL RT-PCR Negative (Negative); SARS-CoV-2 RNA PCR Negative (Negative)
[2024-06-30 12:01] LABS: Erythrocyte Sedimentation Rate 14 mm/hr (0-20)
== END 2024-06-30 10:33 | disposition home or self-care (01) ==
PROVIDERS: PCP Internal Medicine; Visit Provider Internal Medicine
DX: R06.00 Dyspnea, unspecified (principal); R51.9 Headache, unspecified; R09.81 Nasal congestion; Z86.73 Personal history of transient ischemic attack (TIA), and cerebral infarction without residual deficits
CPT/HCPCS: 36415; 70450; 71046; 80048; 83880; 85025; 85652; 87636

== ENCOUNTER 2024-07-04 09:19 | Outpatient (CLI) | payer MEDICARE, SELFPAY ==
[2024-07-04 10:02] LABS: Anion Gap 4 mmol/L (4-12); Blood Urea Nitrogen 32 mg/dL (7-18); Calcium 9.7 mg/dL (8.5-10.1); Carbon Dioxide 32 mmol/L (21-32); Chloride 106 mmol/L (98-108); Estimated Glomerular Filt Rate 52; Glucose 95 mg/dL (70-99); NT Pro B Type Natriuretic Pept 1204 pg/mL (0-450); Osmolality Calculated 300 mOsm/kg (285-295); Sodium 142 mmol/L (136-145)
--- OUTSIDE RECORDS SUMMARY | 2024-07-04 10:10 | XMS_ITS | Encounter Summary ---
Author Organization [facility] Address [address] [facility] [address] [place] [address] Care Team Providers Care Powder Hand Name Role Phone Omar Chambers MD Primary Care Provider + [phone] Omar Chambers MD Primary Care Provider + [phone] Omar Chambers MD Primary Care Provider + [phone] Omar Chambers MD Primary Care Provider + [phone] Encounter Details Date Type Department Care Team (Late st Contact Info) Description 09/09/2013 Orders Only [facility] Health Information Management [address] [place] [address] Scanning, Provider Social History Tobacco Use Types Packs/Day Years Used Date Smoking Tobacco: Never Assessed Sex and Gender Information Value Date Recorded Sex Assigned at Not on file 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
--- OUTSIDE RECORDS SUMMARY | 2024-07-04 10:10 | XMS_ITS | Referral Summary ---
Author Organization [facility] Address [address] [place] [address] Care Team Providers Care Cook Roast Name Role Phone Omar Chambers MD Primary Care Provider + [phone] Allergies No known active allergies Medications aspirin [...] (08/22/2016): At risk for amiodarone toxicity with mcc use Cardiomyopathy, ischemic 07/29/2016 Overview (08/22/2016): Ischemic cardiomyopathy S/P CABG x 4 05/26/2016 Overview (07/04/2016): S/P CABG x 4 Coronary artery disease invo lving [place] coronary artery of [place] heart without angina pectoris 05/26/2016 Overview (07/04/2016): Coronary artery disease involving [place] coronary artery of sob[place] heart without angina pectoris History of maze [...] on file 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 Gender Identity Not on file Sexual Orientation Not on file Last Filed Vital Signs Vital Sign Reading Time Taken Comments Blood Pressure 118/70 12/09/2023 8:32 AM CDT Pulse 83 06/01/2023 1:03 PM POWER ELECTRONICS ENGINEER Temperature 36.3 C (97.3 F) 03/15/2020 9:18 AM POWER ELECTRONICS ENGINEER Respiratory Rate 16 05/20/2017 8:16 AM POWER ELECTRONICS ENGINEER Oxygen Saturation 99% 12/09/2023 8:32 AM CDT Inhaled Oxygen Concentration - - Weight 85.1 kg (187 lb 9.6 oz) 12/09/2023 8:32 A M CDT Height 185.4 cm (6' 1 ) 12/09/2023 8:32 AM CDT Body Mass Index 24.75 12/09/2023 8:32 AM CDT Plan of Treatment Not on file Insurance [facility]ICARE [facility] MEDICARE [facility] MEDIC[facility] Advance Directives For more information, please contact: [phone] Documents on File Type Date Recorded Patient Bone Char Kiln Operator Expl anation ADVANCE DIRECTIVE 11/14/2016 8:27 AM Care Teams Cook Roast Relationship Specialty Start Date End Date Omar Chambers MD [address] [place] [address] PCP - General 06/27/16
--- OUTSIDE RECORDS SUMMARY | 2024-07-04 10:10 | XMS_ITS | Encounter Summary ---
Author Organization [facility] Address [address] [facility] [address] [place] [address] Care Team Providers Care Toe Pounder Name Role Phone Omar Chambers MD Primary Care Provider + [phone] Omar Chambers MD Primary Care Provider + [phone] Omar Chambers MD Primary Care Provider + [phone] Encounter Details Date Type Department Care Team (Late st Contact Info) Description 04/10/2016 Orders Only [facility] ProviderDemar MD [address] [place], [place] [id number] Social History Tobacco Use Types Packs/Day Years Used Date Smoking Tobacco: Light Smoker Comments:Smoking History Pac ks/day: 1 Cigarillos Alcohol Use Standard Drinks/Week Comments Yes 0 (1 standard drink = 0.6 oz pur e alcohol) Sex and Gender Information Value Date Recorded Sex Assigned at Not on file 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
--- OUTSIDE RECORDS SUMMARY | 2024-07-04 10:10 | XMS_ITS | Encounter Summary ---
Author Organization [facility] Address [address] [facility] [address] [place] [address] Care Team Providers Care Paper Machine Tender Name Role Phone Omar Chambers MD Primary Care Provider + [phone] Omar Chambers MD Primary Care Provider + [phone] Omar Chambers MD Primary Care Provider + [phone] Encounter Details Date Type Department Care Team (Late st Contact Info) Description 04/02/2016 Orders Only [facility] ProviderDemar MD [address] [place], [place] [id number] Social History Tobacco Use Types Packs/Day Years Used Date Smoking Tobacco: Light Smoker Comments:Smoking History Pac ks/day: 1 Cigarillos Alcohol Use Standard Drinks/Week Comments Yes 0 (1 standard drink = 0.6 oz pur e alcohol) Sex and Gender Information Value Date Recorded Sex Assigned at Not on file Legal Sex Male 11:58 AM TRAIN BRAKEMAN Gender Identity Not on file Sexual Orientation [...] on filedocumented in this encounter Care Teams Paper Machine Tender Relationship Specialty Start Date End Date Omar Chambers MD [address] [place] [address] PCP - General 06/27/16 Omar Chambers MD [address] [place] [address] PCP - General 05/29/16 06/26/16 Omar Chambers MD [address] [place] [address] PCP - General 08/08/15 05/28/16 documented as of this encounter
--- OUTSIDE RECORDS SUMMARY | 2024-07-04 10:10 | XMS_ITS | Encounter Summary ---
Author Organization [facility] Address [address] [facility] [address] [place] [address] Care Team Providers Care Hair Blender Name Role Phone Omar Chambers MD Primary Care Provider [phone] Encounter Details Date Type Department Care Team (Late st Contact Info) Description 08/13/2016 Orders Only [facility] ProviderDemar MD [address] [place] [address] Social History Tobacco Use Types Packs/Day Years Used Date Smoking Tobacco: Light Smoker Comments:Smoking History Pac ks/day: 1 Cigarillos Alcohol Use Standard Drinks/Week Comments Yes 0 (1 standard drink = 0.6 oz pur e alcohol) Sex and Gender Information Value Date Recorded Sex Assigned at Not on file Legal Sex Male 11:58 AM 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
--- OUTSIDE RECORDS SUMMARY | 2024-07-04 10:10 | XMS_ITS | Clinical Summary ---
Author Organization [facility] Address [address] [place] [address] Care Team Providers Care Graphite Disk Assembler Name Role Phone Omar Chambers MD Primary Care Provider + [phone] Allergies No known active allergies Medications aspirin [...] (08/22/2016): At risk for amiodarone toxicity with snf use Cardiomyopathy, ischemic 07/29/2016 Overview (08/22/2016): Ischemic cardiomyopathy S/P CABG x 4 05/26/2016 Overview (07/04/2016): S/P CABG x 4 Coronary artery disease invo lving craig coronary artery of craig heart without angina pectoris 05/26/2016 Overview (07/04/2016): Coronary artery disease involving craig coronary artery of craig heart without angina pectoris History of maze [...] on file Legal 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 Male 11:58 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 Gender Identity Not on file Sexual Orientation Not on file Obstetrics History Last Filed Vital Signs Vital Sign Reading Time Taken Comments Blood Pressure 118/70 12/09/2023 8:32 AM CDT Pulse 83 06/01/2023 1:03 PM PUBLICATIONS INSPECTOR Temperature 36.3 C (97.3 F) 03/15/2020 9:18 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 INSPECTOR Respiratory Rate 16 05/20/2017 8:16 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 INSPECTOR Oxygen Saturation 99% 12/09/2023 8:32 AM CDT [...] 2005 Influenza Vaccine (#1) 2023 Insurance MEDICARE [facility] MEDICARE [facility] MEDICARE Advance Directives For more information, please contact: [phone] Documents on File Type Date Recorded Patient Supervisor Feed Mill Expl anation ADVANCE DIRECTIVE 11/14/2016 8:27 AM Care Teams Graphite Disk Assembler Relationship Specialty Start Date End Date Omar Chambers MD [address] [place] [address] PCP - General 06/27/16
--- OUTSIDE RECORDS SUMMARY | 2024-07-04 10:10 | XMS_ITS | Encounter Summary ---
Author Organization [facility] Address [address] [facility] [address] [place] [address] Care Team Providers Care Director Of Recruitment And Admissions Name Role Phone Omar Chambers MD Primary Care Provider + [phone] Omar Chambers MD Primary Care Provider + [phone] Omar Chambers MD Primary Care Provider + [phone] Encounter Details Date Type Department Care Team (Late st Contact Info) Description 04/30/2016 Orders Only [facility] ProviderDemar MD [address] [place], [place] [phone] Social History Tobacco Use Types Packs/Day Years Used Date Smoking Tobacco: Light Smoker Comments:Smoking History Pac ks/day: 1 Cigarillos Alcohol Use Standard Drinks/Week Comments Yes 0 (1 standard drink = 0.6 oz pur e alcohol) Sex and Gender Information Value Date Recorded Sex Assigned at Not on file 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
--- OUTSIDE RECORDS SUMMARY | 2024-07-04 10:10 | XMS_ITS | Encounter Summary ---
Author Organization [facility] Address [address] [facility] [address] [place] [address] Care Team Providers Care Experimental Rocketsled Mechanic Name Role Phone Omar Chambers MD Primary Care Provider + [phone] Omar Chambers MD Primary Care Provider + [phone] Omar Chambers MD Primary Care Provider + [phone] Encounter Details Date Type Department Care Team (Late st Contact Info) Description 05/09/2016 Orders Only [facility] ProviderDemar MD [address] [place], [place] [phone] Social History Tobacco Use Types Packs/Day Years Used Date Smoking Tobacco: Light Smoker Comments:Smoking History Pac ks/day: 1 Cigarillos Alcohol Use Standard Drinks/Week Comments Yes 0 (1 standard drink = 0.6 oz pur e alcohol) Sex and Gender Information Value Date Recorded Sex Assigned at Not on file 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
--- OUTSIDE RECORDS SUMMARY | 2024-07-04 10:10 | XMS_ITS | Clinical Summary ---
Author Organization [facility] Address [facility] [place] [address] Care Team Providers Care Glycerin Operator Name Role Phone Unavailable Primary Care Provider [...] - 1-dose 75+ series) 07/12/2015 COVID-19 Vaccine ( - 2023-2 5 season) 2023 Meningococcal B Vaccine Aged Out No l onger eligible based on patient's age to complete this topic Meningococcal Vaccine Aged Out No weston sharron eligible based on patient's age to complete this topic RSV Immunizations Under 20 Months Aged Out No longer eligible based on patient's age to complete this topic
== END 2024-07-04 09:20 | disposition home or self-care (01) ==
LOC: CHSLAB 09:21
PROVIDERS: PCP Internal Medicine; Visit Provider Internal Medicine
DX: I50.9 Heart failure, unspecified (principal)
CPT/HCPCS: 36415; 80048; 83880

== ENCOUNTER 2024-07-12 11:44 | Outpatient (CLI) | payer MEDICARE, SELFPAY ==
--- NOTE | 2024-07-12 11:52 | ECHO_ITS ---
Patient Info Name: Cristiano Torres Age: 84 years : 1940 Gender: Male Ht: 73 in Wt: 180 lbs BSA: 2.05 m2 HR: 68 bpm BP: 119 / 73 mmHg Heart Rhythm: Atrial Fibrillation Technical Quality: Fair Exam Date: 07/12/2024 12:16 PM Exam Location: Echo Lab Patient Status: Outpatient Admit Date: 07/12/2024 Staff Ordering Physician: Omar Chambers MD Clinical Leader: Sue Garcia RDCS Attending Provider: Omar Chambers MD Exam Type: CA echo doppler color flow Study Info Complete two-dimensional, color flow and Doppler transthoracic echocardiogram is performed. Summary 1. Complete two-dimensional, color flow and Doppler transthoracic echocardiogram is performed. 2. Left ventricular chamber dimension is normal. 3. Left ventricular systolic function is normal, estimated at 55-60%. 4. There is mild concentric increased left ventricular wall thickness. 5. The left ventricular diastolic function is abnormal. 6. E/e' 11 is mildly elevated. 7. Atrial fibrillation. 8. Left atrial chamber dimension is severely enlarged. 9. Right atrial chamber dimension is moderately enlarged. 10. There is mild aortic valve sclerosis. 11. The mitral valve has mildly calcified annulus. 12. There is mild mitral valve regurgitation. 13. There is mild tricuspid valve regurgitation. 14. No pulmonary hypertension, estimated pulmonary arterial systolic pressure is 34 mmHg. Left Ventricle E/e' 11 is mildly elevated. Atrial fibrillation. Left ventricular chamber dimension is normal. Left ventricular systolic function is normal, estimated at 55-60%. There is mild concentric increased left ventricular wall thickness. The left ventricular diastolic function is abnormal. Right Ventricle Right ventricular systolic function is normal and with normal TAPSE 1.9 cm. Right ventricular chamber dimension is normal. Left Atria Left atrial chamber dimension is severely enlarged. Right Atria Right atrial chamber dimension is moderately enlarged. Aortic Valve The aortic valve is trileaflet. There is mild aortic valve sclerosis. There is no aortic valve stenosis. There is no aortic valve regurgitation. Pulmonic Valve There is no pulmonic regurgitation. Mitral Valve The mitral valve has mildly calcified annulus. There is no mitral valve stenosis. There is mild mitral valve regurgitation. Tricuspid Valve There is mild tricuspid valve regurgitation. No pulmonary hypertension, estimated pulmonary arterial systolic pressure is 34 mmHg. Pericardium/Pleural There is no pericardial effusion. Inferior Vena Cava Normal inferior vena cava with >50% collapse upon inspiration consistent with normal right atrial pressure, 5 mmHg. Aorta The aortic root size at the sinus of Valsalva is normal. Left Ventricular Outflow Tract Name Value Normal LVOT 2D LVOT Diameter 2.3 cm LVOT Doppler LVOT Peak Velocity 60 cm/s LVOT Peak Gradient 1 mmHg LVOT Mean Gradient 1 mmHg LVOT VTI 12 cm LVOT Stroke Volume 49 ml LVOT CO 2.9 l/min LVOT CI 1.4 l/min/m2 Pulmonic Valve Name Value Normal RVOT Doppler RVOT Peak Gradient 1 mmHg PV Doppler PV Peak Velocity 67 cm/s PV Peak Gradient 2 mmHg Mitral Valve Name Value Normal MV Doppler MV Decel [place] 280 cm/s2 MV Diastolic Function MV E Peak Velocity 65 cm/s MV A Peak Velocity 13 cm/s MV E/A 5.2 MV Annular TDI MV Septal e' Velocity 4.3 cm/s >=8.0 MV E/e' (Septal) 15.2 <=8.0 MV Lateral e' Velocity 6.8 cm/s >=10.0 MV E/e' (Lateral) 9.6 <=8.0 MV e' Average 5.54 MV E/e' (Average) 12.4 Tricuspid Valve Name Value Normal TV Regurgitation Doppler TR Peak Velocity 271 cm/s TR Peak Gradient 24 mmHg Estimated PAP/RSVP RA Pressure 5 mmHg <=5 PA Systolic Pressure 34 mmHg <36 RV Systolic Pressure 34 mmHg <36 TV Annular TDI TV Lateral [place] s' Velocity 6.3 cm/s 9.5-18.7 Aortic Valve Name Value Normal AV Doppler AV Peak Velocity 94 cm/s AV Peak Gradient 3 mmHg AV Mean Gradient 2 mmHg AV Area (Cont Eq Omkar) 2.7 cm2 AV V1/V2 Ratio 0.65 AV Regurgitation 2D LVOT Area 4.2 cm2 Ventricles Name Value Normal LV Dimensions 2D/MM IVS Diastolic Thickness (2D) 1.2 cm 0.6-1.0 LVID Diastole (2D) 5.0 cm 4.2-5.8 LVIW Diastolic Thickness (2D) 1.3 cm 0.6-1.0 LVID Systole (2D) 3.4 cm 2.5-4.0 LVOT Diameter 2.3 cm LV Mass (2D Cubed) 237.72 g 88.00-224.00 LV Mass Index (2D Cubed) 116 g/m2 49-115 Relative Wall Thickness (2D) 0.50 LV Fractional Shortening/Ejection Fraction 2D/MM LV Fractional Shortening (2D) 31 % 25-43 LV EF (2D Teicholz) 59 % 52-72 LV Diastolic Volume (4C MOD) 143 ml LV EF (4C MOD) 62 % LV Diastolic Volume (2C MOD) 181 ml LV EF (2C MOD) 61 % LV Diastolic Volume (BP MOD) 166 ml 62-150 LV Diastolic Volume Index (BP MOD) 81 ml/m2 34-74 LV Systolic Volume (BP MOD) 63 ml 21-61 LV Systolic Volume Index (BP MOD) 31 ml/m2 11-31 LV EF (BP MOD) 62 % 52-72 LV Diastolic Length (4C) 8.9 cm LV Systolic Length (4C) 7.1 cm LV Stroke Volume (4C MOD) 89 ml Atria Name Value Normal LA Dimensions LA Volume (4C A-L) 113 ml LA Volume (BP A-L) 117 ml RA Dimensions RA Area (4C) 24.1 cm2 <=18.0 Report Signatures
--- OUTSIDE RECORDS SUMMARY | 2024-07-12 12:57 | XMS_ITS | Referral Summary ---
Author Organization [facility] Address [address] [place] [id number] Care Team Providers Care Weatherization Technician Name Role Phone Omar Chambers MD Primary Care Provider + [phone] Allergies No known active allergies Medications aspirin [...] (08/22/2016): At risk for amiodarone toxicity with intermodal truck driver use Cardiomyopathy, ischemic 07/29/2016 Overview (08/22/2016): Ischemic cardiomyopathy S/P CABG x 4 05/26/2016 Overview (07/04/2016): S/P CABG x 4 Coronary artery disease invo lving [place] coronary artery of [place] heart without angina pectoris 05/26/2016 Overview (07/04/2016): Coronary artery disease involving [place] coronary artery of [place] heart without angina pectoris History of maze [...] on file 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 Gender Identity Not on file Sexual Orientation Not on file Last Filed Vital Signs Vital Sign Reading Time Taken Comments Blood Pressure 118/70 12/09/2023 8:32 AM CDT Pulse 83 06/01/2023 1:03 PM INTELLIGENCE SPECIALIST Temperature 36.3 C (97.3 F) 03/15/2020 9:18 AM INTELLIGENCE SPECIALIST Respiratory Rate 16 05/20/2017 8:16 AM INTELLIGENCE SPECIALIST Oxygen Saturation 99% 12/09/2023 8:32 AM CDT Inhaled Oxygen Concentration - - Weight 85.1 kg (187 lb 9.6 oz) 12/09/2023 8:32 A M CDT Height 185.4 cm (6' 1 ) 12/09/2023 8:32 AM CDT Body Mass Index 24.75 12/09/2023 8:32 AM CDT Plan of Treatment Not on file Insurance MEDICARE [facility] MEDICARE [facility] MEDICARE Advance Directives For more information, please contact: [phone] Documents on File Type Date Recorded Patient Locomotive Supervisor Expl anation ADVANCE DIRECTIVE 11/14/2016 8:27 AM Care Teams Weatherization Technician Relationship Specialty Start Date End Date Omar Chambers MD [address] [place] [address] PCP - General 06/27/16
--- OUTSIDE RECORDS SUMMARY | 2024-07-12 12:57 | XMS_ITS | Encounter Summary ---
Author Organization [facility] Address [address] [facility] [address] [place] [address] Care Team Providers Care Equipment Service Technician Name Role Phone Omar Chambers MD Primary Care Provider [phone] Encounter Details Date Type Department Care Team (Late st Contact Info) Description 08/13/2016 Orders Only [facility] ProviderDemar MD [address] [place] [address] Social History Tobacco Use Types Packs/Day Years Used Date Smoking Tobacco: Light Smoker Comments:Smoking History Pac ks/day: 1 Cigar[place] Alcohol Use Standard Drinks/Week Comments Yes 0 (1 standard drink = 0.6 oz pur e alcohol) Sex and Gender Information Value Date Recorded Sex Assigned at Not on file 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
--- OUTSIDE RECORDS SUMMARY | 2024-07-12 12:57 | XMS_ITS | Encounter Summary ---
Author Organization [facility] Address [address] [facility] [address] [place] [address] Care Team Providers Care Mobile Paramedical Examiner Name Role Phone Omar Chambers MD Primary Care Provider + [phone] Omar Chambers MD Primary Care Provider + [phone] Omar Chambers MD Primary Care Provider + [phone] Encounter Details Date Type Department Care Team (Late st Contact Info) Description 05/09/2016 Orders Only [facility] ProviderDemar MD [address] [place], [place] [id number] Social History Tobacco Use Types Packs/Day Years Used Date Smoking Tobacco: Light Smoker Comments:Smoking History Pac ks/day: 1 [place]igar[place] Alcohol Use Standard Drinks/Week Comments Yes 0 (1 standard drink = 0.6 oz pur e alcohol) Sex and Gender Information Value Date Recorded Sex Assigned at Not on file 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
--- OUTSIDE RECORDS SUMMARY | 2024-07-12 12:57 | XMS_ITS | Clinical Summary ---
Author Organization [facility] Address [address] [place] [phone] Care Team Providers Care Knowledge Engineer Name Role Phone Omar Chambers MD Primary Care Provider + [phone] Allergies No known active allergies Medications aspirin [...] (08/22/2016): At risk for amiodarone toxicity with predatory animal exterminator use Cardiomyopathy, ischemic 07/29/2016 Overview (08/22/2016): Ischemic cardiomyopathy S/P CABG x 4 05/26/2016 Overview (07/04/2016): S/P CABG x 4 Coronary artery disease invo lving [place] coronary artery of [place] heart without angina pectoris 05/26/2016 Overview (07/04/2016): Coronary artery disease involving [place] coronary artery of [place] heart without angina pectoris History of maze [...] on file 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 Gender Identity Not on file Sexual Orientation Not on file Obstetrics History Last Filed Vital Signs Vital Sign Reading Time Taken Comments Blood Pressure 118/70 12/09/2023 8:32 AM CDT Pulse 83 06/01/2023 1:03 PM PROJECT DESIGN ENGINEER Temperature 36.3 C (97.3 F) 03/15/2020 9:18 AM PROJECT DESIGN ENGINEER Respiratory Rate 16 05/20/2017 8:16 AM PROJECT DESIGN ENGINEER Oxygen Saturation 99% 12/09/2023 8:32 AM [...] 2005 Influenza Vaccine (#1) 2023 Insurance MEDICARE [facility] MEDICARE [facility] MEDICARE Advance Directives For more information, please contact: [phone] Documents on File Type Date Recorded Patient Gold Leaf Roller Expl anation ADVANCE DIRECTIVE 11/14/2016 8:27 AM Care Teams Knowledge Engineer Relationship Specialty Start Date End Date Omar Chambers MD [address] [place] [address] PCP - General 06/27/16
--- OUTSIDE RECORDS SUMMARY | 2024-07-12 12:57 | XMS_ITS | Clinical Summary ---
Author Organization [facility] Address [facility] [place] [address] Care Team Providers Care General Dentist Name Role Phone Unavailable Primary Care Provider [...] Vaccines (1 of 2) 1990 Pneumococcal Vaccine: 50+ Ye ars (1 of 1 - PCV) [...]
--- OUTSIDE RECORDS SUMMARY | 2024-07-12 12:57 | XMS_ITS | Encounter Summary ---
Author Organization [facility] Address [address] [facility] [address] [place] [address] Care Team Providers Care Market Risk Specialist Name Role Phone Omar Chambers MD Primary Care Provider + [phone] Omar Chambers MD Primary Care Provider + [phone] Omar Chambers MD Primary Care Provider + [phone] Encounter Details Date Type Department Care Team (Late st Contact Info) Description 04/02/2016 Orders Only [facility] ProviderDemar MD [address] [place], [place] [id number] Social History Tobacco Use Types Packs/Day Years Used Date Smoking Tobacco: Light Smoker Comments:Smoking History Pac ks/day: 1 [place] Alcohol Use Standard Drinks/Week Comments Yes 0 (1 standard drink = 0.6 oz pur e alcohol) Sex and Gender Information Value Date Recorded Sex Assigned at Not on file 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
--- OUTSIDE RECORDS SUMMARY | 2024-07-12 12:57 | XMS_ITS | Encounter Summary ---
Author Organization [facility] Address [address] [facility] [address] [place] [address] Care Team Providers Care Hospital Wellness Coordinator Name Role Phone Omar Chambers MD Primary Care Provider + [phone] Omar Chambers MD Primary Care Provider + [phone] Omar Chambers MD Primary Care Provider + [phone] Omar Chambers MD Primary Care Provider + [phone] Encounter Details Date Type Department Care Team (Late st Contact Info) Description 09/09/2013 Orders Only [facility] Health Information Management [address] [place] [address] Scanning, Provider Social History Tobacco Use Types Packs/Day Years Used Date Smoking Tobacco: Never Assessed Sex and Gender Information Value Date Recorded Sex Assigned at Not on file 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
--- OUTSIDE RECORDS SUMMARY | 2024-07-12 12:57 | XMS_ITS | Encounter Summary ---
Author Organization [facility] Address [address] [facility] [address] [place] [address] Care Team Providers Care Digital Media Associate Name Role Phone Omar Chambers MD Primary Care Provider + [phone] Omar Chambers MD Primary Care Provider + [phone] Omar Chambers MD Primary Care Provider + [phone] Encounter Details Date Type Department Care Team (Late st Contact Info) Description 04/30/2016 [facility] Only [facility] ProviderDemar MD [address] [place], [place] [id number] Social History Tobacco Use Types Packs/Day Years Used Date Smoking Tobacco: Light Smoker Comments:Smoking History Pac ks/day: 1 [place] Alcohol Use Standard Drinks/Week Comments Yes 0 (1 standard drink = 0.6 oz pur e alcohol) Sex and Gender Information Value Date Recorded Sex Assigned at Not on file 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
--- OUTSIDE RECORDS SUMMARY | 2024-07-12 12:57 | XMS_ITS | Encounter Summary ---
Author Organization [facility] Address [address] [facility] [address] [place] [address] Care Team Providers Care Trade Show Manager Name Role Phone Omar Chambers MD Primary Care Provider + [phone] Omar Chambers MD Primary Care Provider + [phone] Omar Chambers MD Primary Care Provider + [phone] Encounter Details Date Type Department Care Team (Late st Contact Info) Description 04/10/2016 Orders Only [facility] ProviderDemar MD [address] [place], [place] [id number] Social History Tobacco Use Types Packs/Day Years Used Date Smoking Tobacco: Light Smoker Comments:Smoking History Pac ks/day: 1 [place] Alcohol Use Standard Drinks/Week Comments Yes 0 (1 standard drink = 0.6 oz pur e alcohol) Sex and Gender Information Value Date Recorded Sex Assigned at Not on file 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
== END 2024-07-12 11:45 | disposition home or self-care (01) ==
LOC: CHSIMG 11:47
PROVIDERS: PCP Internal Medicine; Visit Provider Internal Medicine
DX: R06.02 Shortness of breath (principal); I50.9 Heart failure, unspecified; I08.3 Combined rheumatic disorders of mitral, aortic and tricuspid valves
CPT/HCPCS: 93306

== ENCOUNTER 2024-07-28 08:38 | Outpatient (CLI) | payer MEDICARE, SELFPAY ==
--- OUTSIDE RECORDS SUMMARY | 2024-07-28 08:47 | XMS_ITS | Encounter Summary ---
Author Organization [facility] Address [address] [facility] [address] [place] [address] Care Team Providers Care Brush Operator Name Role Phone Omar Chambers MD Primary Care Provider + [phone] Omar Chambers MD Primary Care Provider + [phone] Omar Chambers MD Primary Care Provider + [phone] Encounter Details Date Type Department Care Team (Late st Contact Info) Description 04/30/2016 Orders Only [facility] ProviderDemar MD [address] [place], [place] [id number] Social History Tobacco Use Types Packs/Day Years Used Date Smoking Tobacco: Light Smoker Comments:Smoking History Pac ks/day: 1 [place] Alcohol Use Standard Drinks/Week Comments Yes 0 (1 standard drink = 0.6 oz pur e alcohol) Sex and Gender Information Value Date Recorded Sex Assigned at Not on file 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
--- OUTSIDE RECORDS SUMMARY | 2024-07-28 08:47 | XMS_ITS | Encounter Summary ---
Author Organization [facility] Address [address] [facility] [address] [place] [address] Care Team Providers Care Blue Leather Setter Name Role Phone Omar Chambers MD Primary Care Provider + [phone] Omar Chambers MD Primary Care Provider + [phone] Omar Chambers MD Primary Care Provider + [phone] Encounter Details Date Type Department Care Team (Late st Contact Info) Description 05/09/2016 Orders Only [facility] ProviderDemar MD [address] [place], [place] [phone] Social History Tobacco Use Types Packs/Day Years Used Date Smoking Tobacco: Light Smoker Comments:Smoking History Pac ks/day: 1 [place] Alcohol Use Standard Drinks/Week Comments Yes 0 (1 standard drink = 0.6 oz pur e alcohol) Sex and Gender Information Value Date Recorded Sex Assigned at Not on file 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
--- OUTSIDE RECORDS SUMMARY | 2024-07-28 08:47 | XMS_ITS | Encounter Summary ---
Author Organization [facility] Address [address] [facility] [address] [place] [address] Care Team Providers Care Oil Prospecting Observer Name Role Phone Omar Chambers MD Primary Care Provider [phone] Encounter Details Date Type Department Care Team (Late st Contact Info) Description 08/13/2016 Orders Only [facility] ProviderDemar MD [address] [place] [address] Social History Tobacco Use Types Packs/Day Years Used Date Smoking Tobacco: Light Smoker Comments:Smoking History Pac ks/day: 1 [place] Alcohol Use Standard Drinks/Week Comments Yes 0 (1 standard drink = 0.6 oz pur e alcohol) Sex and Gender Information Value Date Recorded Sex Assigned at Not on file 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
--- OUTSIDE RECORDS SUMMARY | 2024-07-28 08:47 | XMS_ITS | Referral Summary ---
Author Organization [facility] Address [address] [place] [address] Care Team Providers Care Toy Trains And Accessories Salesperson Name Role Phone Omar Chambers MD Primary Care Provider + [phone] Allergies No known active allergies Medications aspirin [...] HTN Dyspnea on exertion 07/29/2016 Overview (08/22/2016): BEEYR (dyspnea on exertion) Drug intoxication 07/29/2016 Overview (08/22/2016): At risk for amiodarone toxicity with mcfp use Cardiomyopathy, ischemic 07/29/2016 Overview (08/22/2016): Ischemic cardiomyopathy S/P CABG x 4 05/26/2016 Overview (07/04/2016): S/P CABG x 4 Coronary artery disease invo lving [place] coronary artery of [place] heart without angina pectoris 05/26/2016 Overview (07/04/2016): Coronary artery disease involving [place] coronary artery of [place] heart without angina pectoris History of maze [...] on file Legal Sex Male 11:58 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 Gender Identity Not on file Sexual Orientation Not on file Last Filed Vital Signs Vital Sign Reading Time Taken Comments Blood Pressure 118/70 12/09/2023 8:32 AM CDT Pulse 83 06/01/2023 1:03 PM CALL CENTER 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 Temperature 36.3 C (97.3 F) 03/15/2020 9:18 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 Respiratory Rate 16 05/20/2017 8:16 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 Oxygen Saturation 99% 12/09/2023 8:32 AM CDT Inhaled Oxygen Concentration - - Weight 85.1 kg (187 lb 9.6 oz) 12/09/2023 8:32 A M CDT Height 185.4 cm (6' 1 ) 12/09/2023 8:32 AM CDT Body Mass Index 24.75 12/09/2023 8:32 AM CDT Plan of Treatment Not on file Insurance MEDICARE [facility] MEDICARE [facility] MEDICARE Advance Directives For more information, please contact: [phone] Documents on File Type Date Recorded Patient Hand Tube Winder Expl anation ADVANCE DIRECTIVE 11/14/2016 8:27 AM Care Teams Toy Trains And Accessories Salesperson Relationship Specialty Start Date End Date Omar Chambers MD [address] [place] [address] PCP - General 06/27/16
--- OUTSIDE RECORDS SUMMARY | 2024-07-28 08:47 | XMS_ITS | Encounter Summary ---
Author Organization [facility] Address [address] [facility] [address] [place] [address] Care Team Providers Care Independent Driver Name Role Phone Omar Chambers MD Primary Care Provider + [phone] Omar Chambers MD Primary Care Provider + [phone] Omar Chambers MD Primary Care Provider + [phone] Encounter Details Date Type Department Care Team (Late st Contact Info) Description 04/02/2016 Orders Only [facility] ProviderDemar MD [address] [place], [place] [id number] Social History Tobacco Use Types Packs/Day Years Used Date Smoking Tobacco: Light Smoker Comments:Smoking History Pac ks/day: 1 Cigarillos Alcohol Use Standard Drinks/Week Comments Yes 0 (1 standard drink = 0.6 oz pur e alcohol) Sex and Gender Information Value Date Recorded Sex Assigned at Not on file 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 Historical Provider [facility] JUSYTNA BRINK Final Result documented in this encounter Visit Diagnoses Not on filedocumented in this encounter Care Teams Independent Driver Relationship Specialty Start Date End Date Omar Chambers MD [address] [place] [address] PCP - General 06/27/16 Omar Chambers MD [address] [place] [address] PCP - General 05/29/16 06/26/16 Omar Chambers MD [address] [place] [address] PCP - General 08/08/15 05/28/16 documented as of this encounter
--- OUTSIDE RECORDS SUMMARY | 2024-07-28 08:47 | XMS_ITS | Clinical Summary ---
Author Organization [facility] Address [facility] [place] [address] Care Team Providers Care Tank Farm Attendant Name Role Phone Unavailable Primary Care Provider [...] Td Vaccines ( 1 - Tdap) 07/12/1959 Pneumococcal Vaccine: 50+ Ye ars (1 of 1 - PCV) 1990 Zoster Vaccines (1 of 2) 1990 RSV Immunization or 60+ Years (1 - 1-dose 75+ series) 07/12/2015 COVID-19 Vaccine (2023-2 5 season) 2023 Meningococcal B Vaccine Aged Out No l onger eligible based on patient's age to complete this topic Meningococcal Vaccine Aged Out No weston sharron eligible based on patient's age to complete this topic RSV Immunizations Under 20 Months Aged Out No longer eligible based on patient's age to complete this topic
--- OUTSIDE RECORDS SUMMARY | 2024-07-28 08:47 | XMS_ITS | Clinical Summary ---
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 Gender Identity Not on file Sexual Orientation Not on file Obstetrics History Last Filed Vital Signs Vital Sign Reading Time Taken Comments Blood Pressure 118/70 12/09/2023 8:32 AM CDT Pulse 83 06/01/2023 1:03 PM BLOOD DONOR UNIT ASSISTANT Temperature 36.3 C (97.3 F) 03/15/2020 9:18 AM BLOOD DONOR UNIT ASSISTANT Respiratory Rate 16 05/20/2017 8:16 AM BLOOD DONOR UNIT ASSISTANT Oxygen Saturation 99% 12/09/2023 8:32 AM CDT [...] 1990 Well Visit 65+ 2005 Influenza Vaccine (Season Ended) 2024 Insurance MEDICARE [facility] MEDICARE [facility] MEDICARE Advance Directives For more information, please contact: [phone] Documents on File Type Date Recorded Patient Health Diagnostics Teacher Expl anation ADVANCE DIRECTIVE 11/14/2016 8:27 AM Care Teams Packing Tractor Machine Operator Relationship Specialty Start Date End Date Omar Chambers MD [address] [place] [address] PCP - General 06/27/16
--- OUTSIDE RECORDS SUMMARY | 2024-07-28 08:47 | XMS_ITS | Encounter Summary ---
Author Organization [facility] Address [address] [facility] [address] [place] [address] Care Team Providers Care Drafter Electronic Name Role Phone Omar Chambers MD Primary Care Provider + [phone] Omar Chambers MD Primary Care Provider + [phone] Omar Chambers MD Primary Care Provider + [phone] Omar Chambers MD Primary Care Provider + [phone] Encounter Details Date Type Department Care Team (Late st Contact Info) Description 09/09/2013 Orders Only [facility] Health Information Management [address] [place] [address] Scanning, Provider Social History Tobacco Use Types Packs/Day Years Used Date Smoking Tobacco: Never Assessed Sex and Gender Information Value Date Recorded Sex Assigned at Not on file 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
--- OUTSIDE RECORDS SUMMARY | 2024-07-28 08:47 | XMS_ITS | Encounter Summary ---
Author Organization [facility] Address [address] [facility] [address] [place] [address] Care Team Providers Care Net Developer Architect Name Role Phone Omar Chambers MD Primary Care Provider + [phone] Omar Chambers MD Primary Care Provider + [phone] Omar Chambers MD Primary Care Provider + [phone] Encounter Details Date Type Department Care Team (Late st Contact Info) Description 04/10/2016 Orders Only [facility] ProviderDemar MD [address] [place], [place] [id number] Social History Tobacco Use Types Packs/Day Years Used Date Smoking Tobacco: Light Smoker Comments:Smoking History Pac ks/day: 1 Cigarillos Alcohol Use Standard Drinks/Week Comments Yes 0 (1 standard drink = 0.6 oz pur e alcohol) Sex and Gender Information Value Date Recorded Sex Assigned at Not on file 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
[2024-07-29 03:03] LABS: Anion Gap 8 mmol/L (4-12); Blood Urea Nitrogen 34 mg/dL (7-18); Calcium 9.7 mg/dL (8.5-10.1); Carbon Dioxide 32 mmol/L (21-32); Chloride 104 mmol/L (98-108); Estimated Glomerular Filt Rate 51; Glucose 90 mg/dL (70-99); NT Pro B Type Natriuretic Pept 1163 pg/mL (0-450); Osmolality Calculated 305 mOsm/kg (285-295); Potassium 4.3 mmol/L (3.5-5.1); Sodium 144 mmol/L (136-145)
== END 2024-07-28 08:39 | disposition home or self-care (01) ==
LOC: CHSLAB 08:40
PROVIDERS: PCP Internal Medicine; Visit Provider Internal Medicine
DX: I10 Essential (primary) hypertension (principal); I50.23 Acute on chronic systolic (congestive) heart failure
CPT/HCPCS: 36415; 80048; 83880

== ENCOUNTER 2024-08-29 07:37 | Outpatient (CLI) | payer MEDICARE, SELFPAY ==
--- OUTSIDE RECORDS SUMMARY | 2024-08-29 07:40 | XMS_ITS | Clinical Summary ---
Author Organization [facility] Address [address] [place] [id number] Care Team Providers Care Nuclear Plant Construction Worker Name Role Phone Omar Chambers MD Primary Care Provider + [phone] Allergies No known active allergies Medications aspirin [...] (08/22/2016): At risk for amiodarone toxicity with custodial use Cardiomyopathy, ischemic 07/29/2016 Overview (08/22/2016): Ischemic cardiomyopathy S/P CABG x 4 05/26/2016 Overview (07/04/2016): S/P CABG x 4 Coronary artery disease invo lving [place] coronary artery of [place] heart without angina pectoris 05/26/2016 Overview (07/04/2016): Coronary artery disease involving [place] coronary artery of [place] heart without angina pectoris History of maze [...] on file Legal Sex Male 11:58 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 Gender Identity Not on file Sexual Orientation Not on file Obstetrics History Last Filed Vital Signs Vital Sign Reading Time Taken Comments Blood Pressure 118/70 12/09/2023 8:32 AM CDT Pulse 83 06/01/2023 1:03 PM MANAGER STARS Temperature 36.3 C (97.3 F) 03/15/2020 9:18 AM MANAGER STARS Respiratory Rate 16 05/20/2017 8:16 AM MANAGER STARS Oxygen Saturation 99% 12/09/2023 8:32 AM CDT Inhaled Oxygen Concentration - - Weight 85.1 kg (187 lb 9.6 oz) 12/09/2023 8:32 A M CDT Height 185.4 cm (6' 1) 12/09/2023 8:32 AM CDT Body Mass Index [...] Influenza Vaccine (Season Ended) 2024 Insurance MEDICARE [facility] MEDICARE [facility] MEDICARE Advance Directives For more information, please contact: [phone] Documents on File Type Date Recorded Patient Buckle And Button Maker Expl anation ADVANCE DIRECTIVE 11/14/2016 8:27 AM Care Teams Nuclear Plant Construction Worker Relationship Specialty Start Date End Date Omar Chambers MD [address] [place] [address] PCP - General 06/27/16
--- OUTSIDE RECORDS SUMMARY | 2024-08-29 07:40 | XMS_ITS | Encounter Summary ---
Author Organization [facility] Address [address] [facility] [address] [place] [address] Care Team Providers Care Circuit Rider Name Role Phone Omar Chambers MD Primary Care Provider + [phone] Omar Chambers MD Primary Care Provider + [phone] Omar Chambers MD Primary Care Provider + [phone] Encounter Details Date Type Department Care Team (Late st Contact Info) Description 05/09/2016 Orders Only [facility] ProviderDemar MD [address] [place], [place] [id number] Social History Tobacco Use Types Packs/Day Years Used Date Smoking Tobacco: Light Smoker Comments:Smoking History Pac ks/day: 1 Cigarillos Alcohol Use Standard Drinks/Week Comments Yes 0 (1 standard drink = 0.6 oz pur e alcohol) Sex and Gender Information Value Date Recorded Sex Assigned at Not on file 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
--- OUTSIDE RECORDS SUMMARY | 2024-08-29 07:40 | XMS_ITS | Encounter Summary ---
Author Organization [facility] Address [address] [facility] [address] [place] [address] Care Team Providers Care Digital Content Coordinator Name Role Phone Omar Chambers MD Primary Care Provider + [phone] Omar Chambers MD Primary Care Provider + [phone] Omar Chambers MD Primary Care Provider + [phone] Encounter Details Date Type Department Care Team (Late st Contact Info) Description 04/02/2016 Orders Only [facility] ProviderDemar MD [address] [place], [place] [id number] Social History Tobacco Use Types Packs/Day Years Used Date Smoking Tobacco: Light Smoker Comments:Smoking History Pac ks/day: 1 Cigarillos Alcohol Use Standard Drinks/Week Comments Yes 0 (1 standard drink = 0.6 oz pur e alcohol) Sex and Gender Information Value Date Recorded Sex Assigned at Not on file 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
--- OUTSIDE RECORDS SUMMARY | 2024-08-29 07:40 | XMS_ITS | Encounter Summary ---
Author Organization [facility] Address [address] [facility] [address] [place] [address] Care Team Providers Care Watchstander Name Role Phone Omar Chambers MD Primary Care Provider + [phone] Omar Chambers MD Primary Care Provider + [phone] Omar Chambers MD Primary Care Provider + [phone] Omar Chambers MD Primary Care Provider + [phone] Encounter Details Date Type Department Care Team (Late st Contact Info) Description 09/09/2013 Orders Only [facility] Information Management [address] [place] [address] Scanning, Provider Social History Tobacco Use Types Packs/Day Years Used Date Smoking Tobacco: Never Assessed Sex and Gender Information Value Date Recorded Sex Assigned at Not on file Legal Sex Male 11:58 AM COMPLIANCE REVIEW OFFICER Gender Identity Not on file Sexual Orientation [...] on filedocumented in this encounter Care Teams Watchstander Relationship Specialty Start Date End Date Omar Chambers MD [address] [place] [address] PCP - General 06/27/16 Omar Chambers MD [address] [place] [address] PCP - General 05/29/16 06/26/16 Omar Chambers MD [address] [place] [address] PCP - General 08/08/15 05/28/16 Omar Chambers MD [address] [place] [address] PCP - General 05/28/15 08/07/15 documented as of this encounter
--- OUTSIDE RECORDS SUMMARY | 2024-08-29 07:40 | XMS_ITS | Encounter Summary ---
Author Organization [facility] Address [address] [facility] [address] [place] [address] Care Team Providers Care Icu Staff Nurse Name Role Phone Omar Chambers MD Primary Care Provider + [phone] Omar Chambers MD Primary Care Provider + [phone] Omar Chambers MD Primary Care Provider + [phone] Encounter Details Date Type Department Care Team (Late st Contact Info) Description 04/30/2016 Orders Only [facility] ProviderDemar MD [address] [place], [place] [id number] Social History Tobacco Use Types Packs/Day Years Used Date Smoking Tobacco: Light Smoker Comments:Smoking History Pac ks/day: 1 [place]igar[place]os Alcohol Use Standard Drinks/Week Comments Yes 0 (1 standard drink = 0.6 oz pur e alcohol) Sex and Gender Information Value Date Recorded Sex Assigned at Not on file 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
--- OUTSIDE RECORDS SUMMARY | 2024-08-29 07:40 | XMS_ITS | Referral Summary ---
Author Organization [facility] Address [address] [place] [address] Care Team Providers Care Banana Ripening Room Supervisor Name Role Phone Omar Chambers MD Primary Care Provider + [phone] Allergies No known active allergies Medications aspirin [...] (08/22/2016): At risk for amiodarone toxicity with detention use Cardiomyopathy, ischemic 07/29/2016 Overview (08/22/2016): Ischemic cardiomyopathy S/P CABG x 4 05/26/2016 Overview (07/04/2016): S/P CABG x 4 Coronary artery disease invo lving [place] coronary artery of [place] heart without angina pectoris 05/26/2016 Overview (07/04/2016): Coronary artery disease involving [place] coronary artery of [place] heart without angina pectoris History of maze [...] on file 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 Male 11:58 AM BLEACH 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 Gender Identity Not on file Sexual Orientation Not on file Last Filed Vital Signs Vital Sign Reading Time Taken Comments Blood Pressure 118/70 12/09/2023 8:32 AM CDT Pulse 83 06/01/2023 1:03 PM BLEACH PACKER Temperature 36.3 C (97.3 F) 03/15/2020 9:18 AM BLEACH PACKER Respiratory Rate 16 05/20/2017 8:16 AM BLEACH PACKER Oxygen Saturation 99% 12/09/2023 8:32 AM CDT Inhaled Oxygen Concentration - - Weight 85.1 kg (187 lb 9.6 oz) 12/09/2023 8:32 A M CDT Height 185.4 cm (6' 1) 12/09/2023 8:32 AM CDT Body Mass Index 24.75 12/09/2023 8:32 AM CDT Plan of Treatment Not on file Insurance MEDICARE [facility] MEDICARE [facility] MEDICARE Advance Directives For more information, please contact: [phone] Documents on File Type Date Recorded Patient Photographic Equipment Mechanic Expl anation ADVANCE DIRECTIVE 11/14/2016 8:27 AM Care Teams Banana Ripening Room Supervisor Relationship Specialty Start Date End Date Omar Chambers MD [address] [place] [address] PCP - General 06/27/16
--- OUTSIDE RECORDS SUMMARY | 2024-08-29 07:40 | XMS_ITS | Encounter Summary ---
Author Organization [facility] Address [address] [facility] [address] [place] [address] Care Team Providers Care Clean Out Driller Helper Name Role Phone Omar Chambers MD Primary Care Provider [phone] Encounter Details Date Type Department Care Team (Late st Contact Info) Description 08/13/2016 Orders Only [facility] ProviderDemar MD [address] [place] [address] Social History Tobacco Use Types Packs/Day Years Used Date Smoking Tobacco: Light Smoker Comments:Smoking History Pac ks/day: 1 Cigarillos Alcohol Use Standard Drinks/Week Comments Yes 0 (1 standard drink = 0.6 oz pur e alcohol) Sex and Gender Information Value Date Recorded Sex Assigned at Not on file 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
--- OUTSIDE RECORDS SUMMARY | 2024-08-29 07:40 | XMS_ITS | Encounter Summary ---
Author Organization [facility] Address [address] [facility] [address] [place] [address] Care Team Providers Care Art Studio Teacher Name Role Phone Omar Chambers MD Primary Care Provider + [phone] Omar Chambers MD Primary Care Provider + [phone] Omar Chambers MD Primary Care Provider + [phone] Encounter Details Date Type Department Care Team (Late st Contact Info) Description 04/10/2016 Orders Only [facility] ProviderDemar MD [address] [place], [place] [id number] Social History Tobacco Use Types Packs/Day Years Used Date Smoking Tobacco: Light Smoker Comments:Smoking History Pac ks/day: 1 Cigarillos Alcohol Use Standard Drinks/Week Comments Yes 0 (1 standard drink = 0.6 oz pur e alcohol) Sex and Gender Information Value Date Recorded Sex Assigned at Not on file Legal Sex Male 11:58 AM 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
[2024-08-29 08:26] LABS: Anion Gap 3 mmol/L (4-12); Blood Urea Nitrogen 32 mg/dL (9-20); Calcium 9.2 mg/dL (8.4-10.2); Carbon Dioxide 32 mmol/L (22-30); Chloride 106 mmol/L (98-107); Estimated Glomerular Filt Rate 57; Glucose 87 mg/dL (65-110); Osmolality Calculated 297 mOsm/kg (285-295); Potassium 4.4 mmol/L (3.4-5.0); Sodium 141 mmol/L (137-145)
[2024-08-29 08:33] LABS: NT Pro B Type Natriuretic Pept 1610 pg/mL (19.9-100)
== END 2024-08-29 07:38 | disposition home or self-care (01) ==
LOC: CHSLAB 07:39
PROVIDERS: PCP Internal Medicine; Visit Provider Internal Medicine
DX: I50.9 Heart failure, unspecified (principal)
CPT/HCPCS: 36415; 80048; 83880

== ENCOUNTER 2024-09-23 16:17 | Emergency (ER) | payer MEDICARE, SELFPAY ==
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
[2024-09-23 16:17] VITALS: BP 136/81; PULSE 76; RESP 18; TEMP 36.7; O2SAT 98
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
[2024-09-23 16:45] VITALS: BP 127/72; PULSE 75; RESP 16; O2SAT 100
[2024-09-23 17:01] LABS: Basophils Absolute Auto 0.05 K/mm3 (0.00-0.10); Basophils Percent Auto 0.5 % (0.0-1.0); Eosinophils Absolute Auto 0.05 K/mm3 (0.02-0.50); Eosinophils Percent Auto 0.5 % (1.0-6.0); Hematocrit 38.3 % (37.0-46.0); Hemoglobin 12.7 g/dL (12.4-15.3); Immature Granulocyte Absolute 0.03 K/mm3 (0.00-0.00); Immature Granulocyte Percent A 0.3 % (0.0-0.0); Lymphocytes Absolute Auto 0.67 K/mm3 (1.10-4.50); Mean Corpuscular HGB Conc 33.2 g/dL (32-36); Mean Corpuscular Hemoglobin 31.2 pg (27.0-31.0); Mean Corpuscular Volume 94.1 fL (78.0-102.0); Mean Platelet Volume 9.4 fl (8.7-11.0); Monocytes Absolute Auto 0.57 K/mm3 (0.10-0.90); Monocytes Percent Auto 5.9 % (2.0-11.0); Neutrophils Absolute Auto 8.24 K/mm3 (1.70-7.20); Neutrophils Percent Auto 85.8 % (50.0-70.0); Platelet Count Result 178 K/mm3 (150-420); Red Blood Count 4.07 M/mm3 (4.70-6.10); Red Cell Distribution Width 13.1 % (11.6-14.4); White Blood Count 9.6 K/mm3 (4.8-10.8)
[2024-09-23] MEDS: TETANUS,DIPHTHERIA,AC PERTUSSIS ADULT 0.5 ML (ADACEL) IM (17:08)
[2024-09-23 17:12] LABS: Alanine Aminotransferase 15 U/L (6-50); Albumin Level 4.2 g/dL (3.5-5.1); Alkaline Phosphatase 93 U/L (38-126); Anion Gap 7 mmol/L (4-12); Aspartate Amino Transferase 35 U/L (17-59); Bilirubin,Total 1.1 mg/dL (0.2-1.3); Blood Urea Nitrogen 31 mg/dL (9-20); Calcium 9.3 mg/dL (8.4-10.2); Carbon Dioxide 29 mmol/L (22-30); Chloride 106 mmol/L (98-107); Estimated CRCL calculation 42 ml/min; Estimated Glomerular Filt Rate 51; Glucose 135 mg/dL (65-110); Osmolality Calculated 302 mOsm/kg (285-295); Potassium 3.9 mmol/L (3.4-5.0); Sodium 142 mmol/L (137-145); Total Protein 6.9 g/dL (6.3-8.2)
[2024-09-23 17:13] LABS: INR 1.1; Partial Thromboplastin Time 31.4 Sec (23.9-30.70); Prothrombin Time 12.3 Seconds (9.50-12.1)
[2024-09-23 17:48] VITALS: BP 124/71; PULSE 77; RESP 18; O2SAT 99
[2024-09-23 18:00] VITALS: BP 123/77; PULSE 66; RESP 18; O2SAT 98
[2024-09-23 18:15] VITALS: BP 140/86; PULSE 65; RESP 16; O2SAT 97
[2024-09-23 18:31] VITALS: BP 139/91; PULSE 86; RESP 20; TEMP 37; O2SAT 98
== END 2024-09-23 18:46 | disposition short-term general hospital (02) ==
PROVIDERS: Emergency Provider Emergency Medicine; PCP Internal Medicine
DX: S51.812A Laceration without foreign body of left forearm, initial encounter (principal); I48.91 Unspecified atrial fibrillation; Z79.82 Long term (current) use of aspirin; Z23 Encounter for immunization; V43.52XA Car driver injured in collision with other type car in traffic accident, initial encounter
CPT/HCPCS: 36415; 70491; 71260; 80053; 85025; 85610; 85730; 90471; 90715; 99285; L0150; Q9967